=== PATIENT | female | born 1950 | race Caucasian/White ===

== ENCOUNTER 2018-09-09 19:47 | Inpatient (IN) | payer MEDICARE, MEDICAID ==
[2018-09-09] MEDS ORDERED: Haloperidol Lactate 5 mg/mL 1mL Vial IM STA (20:05)
[2018-09-09] MEDS ORDERED: Haloperidol Lactate 5 mg/mL 1mL Vial ONE (20:10)
--- NOTE | 2018-09-09 20:13 | ED Physician Chart ---
ED Chief Complaint/HPI - Patient Information Date Seen:: 09/09/18 Time Seen:: 20:08 Chief Complaint:: agitation schizophrenia History of Present Illness:: 68 yr old female with schizophrenia weakness bipolar anxiety contractures legs hx of sepsis pt agitated screaming take me out of here cussing Allergies:: Allergies Allergy/AdvReac Type Severity Reaction Status Date / Time Penicillins Allergy Verified 09/09/18 20:02 Sulfa (Sulfonamide Allergy Verified 09/09/18 20:02 Antibiotics) Vitals:: Vital Signs - 8 hr 09/09/18 20:03 Temp 97.2 F HR 66 RR 18 BP 151/71 O2 Sat % 100 ED Review of Systems - Review of Systems General/Constitutional: No fever Skin: Skin lesions Eyes: No loss of vision ENT: No earache Neck: No neck pain Cardio Vascular: No chest pain Pulmonary: No SOB G/U: No dysuria Hematopoietic: No bruising Allergic/Immuno: No urticaria Neurological: No syncope ED Past Medical History - Past Medical History Past Medical History: Other (schizo bipolar) ED Physical Exam - Physical Examination Head: Atraumatic Eyes: Lids, conjuctiva normal (cellulitis lower legs and skin lesions arms) ENMT: External ears, nose nl Neck: Nontender Respiratory: Nl effort/Exclusion Cardio Vascular: RRR GI: No organomegaly (pt very agitated screaming very loudly) ED Assessment - Assessment General Assessment: schizophrenia agitation ED Septic Shock - . Is Septic Shock (SBP<90, OR Lactate>4 mmol\L) present?: No - <6hrs of presentation: Vital Signs: Vital Signs - 8 hr 09/09/18 20:03 Temp 97.2 F HR 66 RR 18 BP 151/71 O2 Sat % 100 ED Reassessment (Disposition) - Reassessment Reassessment:: schizo bipolar agitation - Patient Disposition Discharge/Transfer:: Acute Care w/in this hosp Admitted to:: Med/Surg Condition at Disposition:: Unchanged
[2018-09-09 21:03] LABS: % BASOPHILS 0.6 % (0.0-2.0); % EOSINOPHILS 1.9 % (0.0-5.0); % LYMPHOCYTES 35.6 % (20.0-50.0); % MONOCYTES 10.6 % (2.0-10.0); % NEUTROPHILS 51.3 % (40.0-80.0); EOSINOPHILE ABSOLUTE 0.1 Th/cmm (0.1-0.4); HEMATOCRIT 39.5 % (41.0-60); HEMOGLOBIN 13.4 gm/dL (12-16); LYMPHOCYTE ABSOLUTE 2.6 Th/cmm (1.5-3.0); MEAN CELL VOLUME 90.9 fl (81-100); MEAN CORPUSCULAR HEMOGLOBIN 30.8 pg (27.0-31.0); MEAN CORPUSCULAR HGB CONC 33.9 pg (28.0-36.0); MEAN PLATELET VOLUME 6.8 fl; MONOCYTE ABSOLUTE 0.8 Th/cmm (0.3-1.0); NEUTROPHILE ABSOLUTE 3.8 Th/cmm (1.8-8.0); PLATELET COUNT 311 Th/cmm (150-400); RED BLOOD COUNT 4.34 Mil/cmm (3.80-5.20); RED CELL DISTRIBUTION WIDTH 13.6 % (11.5-20.0); WHITE BLOOD COUNT 7.3 Th/cmm (4.8-10.8)
[2018-09-09 21:17] LABS: ALB/GLOB RATIO 1.1 (1.0-1.8); ALBUMIN 2.8 gm/dL (3.7-5.3); ALKALINE PHOSPHATASE 56 U/L (34-104); ANION GAP 12.9 (7.0-16.0); BILIRUBIN,TOTAL 0.7 mg/dL (0.3-1.0); BUN - UREA NITROGEN 15 mg/dL (7-25); CALCIUM SERUM 8.4 mg/dL (8.6-10.3); CARBON DIOXIDE 20.5 mEq/L (21.0-31.0); CHLORIDE 110 mEq/L (98-107); CREATININE - SERUM 0.5 mg/dL (0.6-1.2); GFR AFRICAN-AMERICAN > 60.0 ml/min (>90); GFR NON AFRICAN-AMERICAN > 60.0 ml/min; GLUCOSE 95 mg/dL (70-105); POTASSIUM SERUM 3.4 mEq/L (3.5-5.1); SGOT 9 U/L (13-39); SGPT/ALT 5 U/L (7-52); SODIUM SERUM 140 mEq/L (136-145); TOTAL PROTEIN,SERUM 5.3 gm/dL (6.0-8.3)
[2018-09-10 00:10] VITALS: BP 134/80
[2018-09-10] MEDS ORDERED: Magnesium Hydroxide (MOM) 30 mL UDC PO PRN (00:16)
[2018-09-10] MEDS ORDERED: Maalox 30 mL Cup PO PRN (00:16)
[2018-09-10 04:56] LABS: CHOLESTEROL 137 mg/dL (<200); HDL -HIGH DENSITY LIPOPROTEIN 29 mg/dL (23-92); TRIGLYCERIDES 102 mg/dL (<150)
[2018-09-10] MEDS: Pantoprazole 40 mg EC Tab PO SCH (07:05)
--- NOTE | 2018-09-10 08:24 | Diagnostic Imaging Report ---
CHEST X-RAY: AP view INDICATION: Shortness of breath COMPARISON: None FINDINGS: There is elevation of the left hemidiaphragm. Mild chronic lung changes are noted. There is no focal consolidation or pleural effusions . Mild cardiomegaly is noted with probable atherosclerosis of the aortic arch with tortuous aorta. Degenerative changes of the spine and shoulders are noted. IMPRESSION: Chronic lung changes with no focal consolidation identified. Mild cardiomegaly with probable atherosclerosis of the aortic arch and tortuous aorta.
--- NOTE | 2018-09-10 09:18 | History and Physical ---
History of Present Illness - HPI Chief Complaint: Increased in agitation HPI: Patient is a permanent resident of a SNF, she was send to ER for evaluation due to increased in agitation. During ER eval patient was agitated that she received ativan to calm her. 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: Report: Dementia GI: Report: No Pertinent Hx Psych: Report: Schizophrenia Musculoskeletal: Report: Stiffness, Other (Non ambulatory) Rheumatologic: Report: No pertinent Hx Infectious Disease: Report: No Pertinent Hx Renal/: Report: No Pertinent Hx Endocrine: Report: No Pertinent Hx Dermatology: Report: No Pertinent Hx - Past Surgical History Past Surgical History: No pertinent Hx Family Medical History - Family Member Mother History Unknown: Yes Social History Smoke: No Alcohol: None Drugs: None Lives: [facility] Domestic Violence: Negative - Medications Home Medications: Home Medication Medication Instructions Recorded Type Acetaminophen 650 mg PO Q4HR PRN 09/09/18 History Hydrocodone/Acetaminophen [[place] 1 tab PO Q6HR PRN 09/09/18 History 325 mg-5 mg*] Multivitamin [Daily Value] 1 tab PO DAILY 09/09/18 History Pantoprazole [Protonix] 40 mg PO DAILY 09/09/18 History Valproic Acid [Depakene] 250 mg PO BID 09/09/18 History risperiDONE [RisperDAL] 0.5 mg PO BID 09/09/18 History - Allergies Allergies/Adverse Reactions: Allergies Allergy/AdvReac Type Severity Reaction Status Date / Time Penicillins Allergy Verified 09/09/18 20:02 Sulfa (Sulfonamide Allergy Verified 09/09/18 20:02 Antibiotics) Review of Systems - Review of Systems Review of Systems: Patient can not give a good history. Constitutional: Report: No Significant Eyes: Report: No Significant ENT: Report: No Significant Respiratory: Report: No Significant Cardiovascular: Report: No Significant Gastrointestinal: Report: No Significant Genitourinary: Report: No Significant Musculoskeletal: Report: No Significant Skin: Report: No Significant Neurological: Report: Weakness, Incoordination Physical Exam - Physical Exam HEENT: Report: Ears Nose Throat within normal limits Neck: Report: Within normal limits Cardiovascular Systems: Report: Regular, Rate and Rhythm Respiratory: Report: Breath Sounds are within normal limits Abdomen: Report: Non-tender to palpation Back: Report: Inspection of back is within normal limits. Extremities: Report: Non-tender to palpation., Other (Non ambulatory) Skin: Report: Color of skin is within normal limits, Warm, Dry Neuro/Psych: Report: Disoriented to name time or place - Lab Results All Lab Results last 24 hours: Laboratory Results - last 24 hr 09/09/18 09/09/18 09/09/18 20:57 20:57 20:57 WBC 7.3 RBC 4.34 Hgb 13.4 Hct 39.5 L MCV 90.9 MCH 30.8 MCHC Differential 33.9 RDW 13.6 Plt Count 311 MPV 6.8 Neutrophils % 51.3 Lymphocytes % 35.6 Monocytes % 10.6 H Eosinophils % 1.9 Basophils % 0.6 Sodium 140 Potassium 3.4 L Chloride 110 H Carbon Dioxide 20.5 L Anion Gap 12.9 BUN 15 Creatinine 0.5 L Est GFR ( Amer) > 60.0 Est GFR (Non-Af Amer) > 60.0 BUN/Creatinine Ratio 30.0 Glucose 95 Calcium 8.4 L Total Bilirubin 0.7 AST 9 L ALT 5 L Alkaline Phosphatase 56 Total Protein 5.3 L Albumin 2.8 L Globulin 2.5 Albumin/Globulin Ratio 1.1 Triglycerides 102 Cholesterol 137 LDL Cholesterol Direct 110 HDL Cholesterol 29 - Assessment Assessment: Patient is sleeping but arousable. Dx: increased in agitation, Schizophrenia, General muscle weakness, non ambulatory. - Plan Plan: Patient is follow by Psychiatry, she is continue with SNF meds. Will continue to monitor.
[2018-09-10] MEDS: Multivitamin Tab PO SCH (09:34)
[2018-09-10] MEDS ORDERED: Albuterol Nebulizer 2.5mg/3mL HHN PRN (20:05)
--- NOTE | 2018-09-10 22:55 | Psychiatric Evaluation ---
DATE OF SERVICE: 09/09/2018 IDENTIFYING DATA: The patient is a 68-year-old resident of [facility], post-Acute in [place]. Information obtained directly interviewing the patient as well as reviewing the admission papers and they are reliable. JUSTIFICATION FOR HOSPITALIZATION: The patient is admitted here because of her acute mood swings and paranoia and refusal to comply with the medication. CHIEF COMPLAINT: "I don't need to talk to. I gave all the information, you need to look into." HISTORY OF PRESENT ILLNESS: This is the first psychiatric hospitalization to [facility] for this patient who has been diagnosed with mental illness for a long time and the patient is reported to have been on Risperdal and Depakote and Risperdal and has not been willing to comply with the treatment. The patient has been getting easily agitated and has been having difficult time to cope with the stress and the patient is reported to have been getting easily upset and hence the patient has been referred over here for further care. PAST PSYCHIATRIC HISTORY: Details are not known. MEDICAL HISTORY: Physical examination is requested to be done by Dr. Somers. SUBSTANCE ABUSE HISTORY: None. PHYSICAL OR SEXUAL ABUSE HISTORY: None. LEGAL PROBLEMS: None at this time. MENTAL STATUS EXAMINATION: The patient is a 68-year-old, looking her stated age, superficially cooperative. Eye contact is poor. Mood is noted to be irritable. Affect is constricted. Insight and judgment at this time are noted to be very much impaired. The patient has paranoia and acute mood swings. The patient is not able to contract for safety at this time. The patient is getting easily frustrated and irritable. The patient has no insight into her illness. The patient is alert and oriented to this place, but not to time. The patient is getting easily frustrated. DIAGNOSES AT THE TIME OF ADMISSION: AXIS I: Bipolar disorder mixed with psychotic symptoms, rule out schizoaffective disorder. AXIS II: None. AXIS III: As per Dr. Somers. IMMEDIATE TREATMENT PLAN: The patient is going to be observed on inpatient unit, provided with supportive psychotherapy. The patient is going to be encouraged to participate in the groups and verbalize the concerns. Once stabilized, the patient is going to be discharged to [facility] for further care. JOB# [id number]
[2018-09-11] MEDS: Pantoprazole 40 mg EC Tab PO SCH (06:33)
[2018-09-11] MEDS: Multivitamin Tab PO SCH (08:43)
[2018-09-11] MEDS ORDERED: MULTIVITAMIN PO SCH (09:00)
--- NOTE | 2018-09-11 09:05 | General Progress Note ---
Subjective - Review of Systems Service Date: 09/11/18 Subjective: Patient is confused and incoherent Objective - Results Result Diagrams: 09/09/18 20:57 09/09/18 20:57 Recent Labs: Laboratory Last Values WBC 7.3 Th/cmm (4.8-10.8) 09/09/18 20:57 RBC 4.34 Mil/cmm (3.80-5.20) 09/09/18 20:57 Hgb 13.4 gm/dL (12-16) 09/09/18 20:57 Hct 39.5 % (41.0-60) L 09/09/18 20:57 MCV 90.9 fl (81-100) 09/09/18 20:57 MCH 30.8 pg (27.0-31.0) 09/09/18 20:57 MCHC Differential 33.9 pg (28.0-36.0) 09/09/18 20:57 RDW 13.6 % (11.5-20.0) 09/09/18 20:57 Plt Count 311 Th/cmm (150-400) 09/09/18 20:57 MPV 6.8 fl 09/09/18 20:57 Neutrophils % 51.3 % (40.0-80.0) 09/09/18 20:57 Lymphocytes % 35.6 % (20.0-50.0) 09/09/18 20:57 Monocytes % 10.6 % (2.0-10.0) H 09/09/18 20:57 Eosinophils % 1.9 % (0.0-5.0) 09/09/18 20:57 Basophils % 0.6 % (0.0-2.0) 09/09/18 20:57 Sodium 140 mEq/L (136-145) 09/09/18 20:57 Potassium 3.4 mEq/L (3.5-5.1) L 09/09/18 20:57 Chloride 110 mEq/L (98-107) H 09/09/18 20:57 Carbon Dioxide 20.5 mEq/L (21.0-31.0) L 09/09/18 20:57 Anion Gap 12.9 (7.0-16.0) 09/09/18 20:57 BUN 15 mg/dL (7-25) 09/09/18 20:57 Creatinine 0.5 mg/dL (0.6-1.2) L 09/09/18 20:57 Est GFR ( Amer) > 60.0 ml/min (>90) 09/09/18 20:57 Est GFR (Non-Af Amer) > 60.0 ml/min 09/09/18 20:57 BUN/Creatinine Ratio 30.0 09/09/18 20:57 Glucose 95 mg/dL (70-105) 09/09/18 20:57 Calcium 8.4 mg/dL (8.6-10.3) L 09/09/18 20:57 Total Bilirubin 0.7 mg/dL (0.3-1.0) 09/09/18 20:57 AST 9 U/L (13-39) L 09/09/18 20:57 ALT 5 U/L (7-52) L 09/09/18 20:57 Alkaline Phosphatase 56 U/L (34-104) 09/09/18 20:57 Total Protein 5.3 gm/dL (6.0-8.3) L 09/09/18 20:57 Albumin 2.8 gm/dL (3.7-5.3) L 09/09/18 20:57 Globulin 2.5 gm/dL 09/09/18 20:57 Albumin/Globulin Ratio 1.1 (1.0-1.8) 09/09/18 20:57 Triglycerides 102 mg/dL (<150) 09/09/18 20:57 Cholesterol 137 mg/dL (<200) 09/09/18 20:57 LDL Cholesterol Direct 110 mg/dL (75-193) 09/09/18 20:57 HDL Cholesterol 29 mg/dL (23-92) 09/09/18 20:57 - Physical Exam Vitals and I&O: Vital Signs Temp 98.4 F 09/11/18 06:14 Pulse 110 09/11/18 06:14 Resp 18 09/11/18 06:14 BP 122/47 09/11/18 06:14 Pulse Ox 92 09/11/18 06:14 Intake & Output 09/10/18 09/11/18 09/11/18 18:59 06:59 18:59 Intake Total 850 180 Balance 850 180 Intake: Oral 850 180 Other: # Voids 4 1 # Bowel Movements 1 1 Active Medications: Current Medications Acetaminophen (Tylenol) 650 mg PO Q4HR PRN PRN Reason: Mild Pain 1-3/ Temp above 100 Stop: 11/09/18 01:41 Acetaminophen/Hydrocodone Bitart ([place] 5mg/325mg) 1 tab PO Q6HR PRN PRN Reason: MODERATE TO SEVERE PAIN Stop: 11/09/18 06:32 Al Hydrox/Mg Hydrox/Simethicone (Maalox) 30 ml PO Q4HR PRN PRN Reason: GI DISTRESS Stop: 11/09/18 00:15 Albuterol Sulfate (Albuterol 2.5mg/3ml Neb Ud) 2.5 mg HHN Q6H PRN PRN Reason: Shortness of Breath Stop: 11/09/18 20:04 Lorazepam (Ativan) 0.5 mg PO Q4HR PRN; Protocol PRN Reason: Anxiety Stop: 10/10/18 00:15 Magnesium Hydroxide (Milk Of Magnesia) 30 ml PO HS PRN PRN Reason: Constipation Multivitamins/Vitamin C (Theragran) 1 tab PO DAILY KIRK Stop: 11/09/18 08:59 Last Admin: 09/11/18 08:43 Dose: 1 tab Pantoprazole Sodium (Protonix) 40 mg PO QDAC KIRK Stop: 11/09/18 07:29 Last Admin: 09/11/18 06:33 Dose: 40 mg Zolpidem Tartrate (Ambien) 5 mg PO HS PRN PRN Reason: Insomnia Stop: 11/09/18 00:15 General: Alert, Other (Confused) HEENT: Atraumatic Neck: Supple Cardiovascular: Regular rate Lungs: Clear to auscultation Abdomen: Bowel sounds, Soft Extremities: Other (No edema) Neurological: Other (Non ambulatory) Skin: Other (Warm and dry) Psych/Mental Status: Other (Confused, not oriented) Assessment/Plan - Assessment Assessment: Patient is awake, confused, not oriented, she ate 70%. Dx: increased in agitation, Schizophrenia, General muscle weakness, non ambulatory. - Plan Plan: Patient is follow by Psychiatry, she is continue with SNF meds. Will continue to monitor.
[2018-09-11] MEDS: Venelex 60gm Tube TP SCH (15:27)
--- NOTE | 2018-09-11 17:14 | Consultation ---
DATE OF CONSULTATION: 09/11/2018 REFERRING PHYSICIAN: Kip Carlson M.D. TYPE OF CONSULTATION: Psychology. HISTORY OF PRESENT ILLNESS: The patient is a 68-year-old female. The patient is a [facility] in [place], [place]. The following is by record review and by the patient's self report. The patient is being admitted due to acute mood swings and paranoia as well as refusal to comply with medication. Upon interview, the patient states that she does not need to give any information. The patient is reported by the staff at her facility as becoming easily agitated and difficult to redirect with poor coping skills. The patient was transferred here for stabilization. The patient denied any suicidal ideation, plan, or intention at the time of this clinical interview. PAST MEDICAL HISTORY: Please see history and physical by Dr. Somers. PAST PSYCHIATRIC HISTORY: Records are unavailable. Details are unknown. SUBSTANCE ABUSE HISTORY: The patient denied any history of substance abuse including alcohol, tobacco, or illicit drug use. PSYCHOSOCIAL HISTORY: The patient did not answer questions about occupational or educational history or jew affiliation. She did not answer questions about history of physical or sexual abuse or current legal problems. The patient offered no information about any support system including marital status, children, family, or friends that are part of her care. MENTAL STATUS EXAMINATION: The patient appears to be her stated age. The patient's attitude is superficially cooperative and guarded. Eye contact is poor. Speech is spontaneous. Mood is irritable. Affect is constricted. The patient is experiencing acute mood swings during this clinical interview. The patient denied any auditory or visual hallucinations. The patient denies any suicidal ideation, plan, or intention. The patient has been difficult to redirect on the unit according to staff. Impulse control is poor. Concentration is poor. Sensorium is alert and oriented to self and place. The patient did not participate in the memory assessment. The patient did not participate in the interpretation of proverbs. Insight is poor. Judgment is impaired. DIAGNOSTIC IMPRESSION: AXIS I: Bipolar disorder mixed with psychotic symptoms, rule out schizoaffective disorder. AXIS II: Deferred. AXIS III: Per Dr. Somers. TREATMENT PLAN: The patient has been seen by Dr. Carlson for psychiatric evaluation and for the management of the patient's psychotropic medications. We will provide supportive psychotherapy to include reality orientation, differentiation, and integration. We will provide de-escalation as well as limit setting. We will provide coping strategies for phase of life issues as well as for chronic severe mental illness. We will provide motivational enhancement for the patient to become compliant and stay compliant with all aspects of her care and treatment. We will encourage the patient to be able to demonstrate emotional and self-regulation prior to her discharge. According to the record, the patient had been on Risperdal and Depakote and had been unwilling to comply with that treatment. Please see the Psychiatry treatment plan for current medication. Thank you, Dr. Carlson for this consult and the opportunity to participate in this patient's care. JOB# [id number] PETAR
--- NOTE | 2018-09-11 19:36 | Progress Notes ---
DATE: 09/11/2018 SUBJECTIVE: Staff was spoken to. The patient is interviewed. Mood is noted to be depressed. Affect is constricted. The patient is isolative and withdrawn. The patient has been very sedated and even without the medication and has been having difficult time even to swallow. The patient is being closely monitored at this time with only on a p.r.n. doses of medications and the patient's coping skills at this time are noted to be very poor. ASSESSMENT: The patient is still depressed. PLAN: To continue the patient with the supportive therapy. I encouraged the patient to verbalize the concerns rather than to act out. The patient's medication is going to be reviewed again and followed up with the supportive therapy. JOB# [id number]
[2018-09-12] MEDS: Pantoprazole 40 mg EC Tab PO SCH (06:36)
[2018-09-12] MEDS: Multivitamin Tab PO SCH (08:21)
[2018-09-12] MEDS: Venelex 60gm Tube TP SCH (08:21)
--- NOTE | 2018-09-12 15:39 | Progress Notes ---
DATE: 09/12/2018 CHIEF COMPLAINT: Psychotic illness. SUBJECTIVE: The patient was seen, discussed with staff. He remains forgetful, confused, and irritable. The patient, however, is taking her medications. Appetite and sleep are fair. The patient at times is still having some episodes of refusing care. The patient is still having some agitation. MENTAL STATUS EXAM: Speech is minimal, ____ to topic. Affect is dysphoric. The patient is still paranoid. Memory, calculation, and fund of knowledge are impaired. ASSESSMENT: Bipolar disorder mixed with psychosis versus schizoaffective disorder. PLAN: Continue medication management. Continue stabilization. Continue supportive measures. The patient was on risperidone and Depakote. We will try to start a small dose of Seroquel to see if that helps more. JOB# [id number]
--- NOTE | 2018-09-12 17:05 | General Progress Note ---
Subjective - Review of Systems Service Date: 09/12/18 Subjective: Patient is confused and incoherent Objective - Results Result Diagrams: 09/09/18 20:57 09/09/18 20:57 Recent Labs: Laboratory Last Values WBC 7.3 Th/cmm (4.8-10.8) 09/09/18 20:57 RBC 4.34 Mil/cmm (3.80-5.20) 09/09/18 20:57 Hgb 13.4 gm/dL (12-16) 09/09/18 20:57 Hct 39.5 % (41.0-60) L 09/09/18 20:57 MCV 90.9 fl (81-100) 09/09/18 20:57 MCH 30.8 pg (27.0-31.0) 09/09/18 20:57 MCHC Differential 33.9 pg (28.0-36.0) 09/09/18 20:57 RDW 13.6 % (11.5-20.0) 09/09/18 20:57 Plt Count 311 Th/cmm (150-400) 09/09/18 20:57 MPV 6.8 fl 09/09/18 20:57 Neutrophils % 51.3 % (40.0-80.0) 09/09/18 20:57 Lymphocytes % 35.6 % (20.0-50.0) 09/09/18 20:57 Monocytes % 10.6 % (2.0-10.0) H 09/09/18 20:57 Eosinophils % 1.9 % (0.0-5.0) 09/09/18 20:57 Basophils % 0.6 % (0.0-2.0) 09/09/18 20:57 Sodium 140 mEq/L (136-145) 09/09/18 20:57 Potassium 3.4 mEq/L (3.5-5.1) L 09/09/18 20:57 Chloride 110 mEq/L (98-107) H 09/09/18 20:57 Carbon Dioxide 20.5 mEq/L (21.0-31.0) L 09/09/18 20:57 Anion Gap 12.9 (7.0-16.0) 09/09/18 20:57 BUN 15 mg/dL (7-25) 09/09/18 20:57 Creatinine 0.5 mg/dL (0.6-1.2) L 09/09/18 20:57 Est GFR ( Amer) > 60.0 ml/min (>90) 09/09/18 20:57 Est GFR (Non-Af Amer) > 60.0 ml/min 09/09/18 20:57 BUN/Creatinine Ratio 30.0 09/09/18 20:57 Glucose 95 mg/dL (70-105) 09/09/18 20:57 Calcium 8.4 mg/dL (8.6-10.3) L 09/09/18 20:57 Total Bilirubin 0.7 mg/dL (0.3-1.0) 09/09/18 20:57 AST 9 U/L (13-39) L 09/09/18 20:57 ALT 5 U/L (7-52) L 09/09/18 20:57 Alkaline Phosphatase 56 U/L (34-104) 09/09/18 20:57 Total Protein 5.3 gm/dL (6.0-8.3) L 09/09/18 20:57 Albumin 2.8 gm/dL (3.7-5.3) L 09/09/18 20:57 Globulin 2.5 gm/dL 09/09/18 20:57 Albumin/Globulin Ratio 1.1 (1.0-1.8) 09/09/18 20:57 Triglycerides 102 mg/dL (<150) 09/09/18 20:57 Cholesterol 137 mg/dL (<200) 09/09/18 20:57 LDL Cholesterol Direct 110 mg/dL (75-193) 09/09/18 20:57 HDL Cholesterol 29 mg/dL (23-92) 09/09/18 20:57 - Physical Exam Vitals and I&O: Vital Signs Temp 99.0 F 09/12/18 14:00 Pulse 82 09/12/18 14:00 Resp 18 09/12/18 14:00 BP 119/62 09/12/18 14:00 Pulse Ox 96 09/12/18 14:00 Intake & Output 09/11/18 09/12/18 09/12/18 18:59 06:59 18:59 Intake Total 960 Balance 960 Intake: Oral 960 Other: # Voids 3 # Bowel Movements 1 Active Medications: Current Medications Acetaminophen (Tylenol) 650 mg PO Q4HR PRN PRN Reason: Mild Pain 1-3/ Temp above 100 Stop: 11/09/18 01:41 Acetaminophen/Hydrocodone Bitart ([place] 5mg/325mg) 1 tab PO Q6HR PRN PRN Reason: MODERATE TO SEVERE PAIN Stop: 11/09/18 06:32 Al Hydrox/Mg Hydrox/Simethicone (Maalox) 30 ml PO Q4HR PRN PRN Reason: GI DISTRESS Stop: 11/09/18 00:15 Albuterol Sulfate (Albuterol 2.5mg/3ml Neb Ud) 2.5 mg HHN Q6H PRN PRN Reason: Shortness of Breath Stop: 11/09/18 20:04 [place] Oil/[place] Balsam/Trypsin (Venelex) 1 appl TP DAILY KIRK Stop: 11/10/18 14:14 Last Admin: 09/12/18 08:21 Dose: 1 appl Lorazepam (Ativan) 0.5 mg PO Q4HR PRN; Protocol PRN Reason: Anxiety Stop: 10/10/18 00:15 Last Admin: 09/12/18 08:21 Dose: 0.5 mg Magnesium Hydroxide (Milk Of Magnesia) 30 ml PO HS PRN PRN Reason: Constipation Multivitamins/Vitamin C (Theragran) 1 tab PO DAILY KIRK Stop: 11/09/18 08:59 Last Admin: 09/12/18 08:21 Dose: 1 tab Pantoprazole Sodium (Protonix) 40 mg PO QDAC KIRK Stop: 11/09/18 07:29 Last Admin: 09/12/18 06:36 Dose: 40 mg Quetiapine Fumarate (Seroquel) 12.5 mg PO HS KIRK; Protocol Stop: 11/11/18 20:59 Zolpidem Tartrate (Ambien) 5 mg PO HS PRN PRN Reason: Insomnia Stop: 11/09/18 00:15 General: Alert, Other (Confused) HEENT: Atraumatic Neck: Supple Cardiovascular: Regular rate Lungs: Clear to auscultation Abdomen: Bowel sounds, Soft Extremities: Other (No edema) Neurological: Other (Non ambulatory) Skin: Other (Warm and dry) Psych/Mental Status: Other (Confused, not oriented) Assessment/Plan - Assessment Assessment: Patient is awake, confused, not oriented, she ate 70%. Dx: increased in agitation, Schizophrenia, General muscle weakness, non ambulatory. - Plan Plan: Patient is follow by Psychiatry, she is continue with SNF meds. Will continue to monitor. Nutritional Asmnt/Malnutr-PDOC - Dietary Evaluation Malnutrition Findings (Please click <Entered> for more info): Nutritional Asmnt/Malnutrition Start: 09/12/18 08: 57 Text: Status: Complete Freq: Protocol: Document 09/12/18 08:57 GWENDOLYN (Rec: 09/12/18 09:01 [email or web address] [email or web address]) Nutritional Asmnt/Malnutrition Patient General Information Nutritional Screening High Risk Consult Diagnosis psychosis Pertinent Medical Hx/Surgical Hx schizo, bipolar Subjective Information Consult received for right media 1st metatarsal head pressure ulcer. Pt seen sleeping in bed at time of visit. Spoke with nurse Edna, stated pt eats well with assist. Per EMR, PO intake 50- 75% of meals, meeting 100% of nutritional needs. Pt is getting healthy shake on pureed diet. Current Diet Order/ Nutrition Support pureed Pertinent Medications theragran, protonix Pertinent Labs 09/09 K 3.4, Cl 110, Cr 0.5, glucose 95, Ca 8.4, Alb 2.8 Nutritional Hx/Data Height 1.68 m Height (Calculated Centimeters) 167.6 Current Weight (lbs) 52.163 kg Weight (Calculated Kilograms) 52.2 Weight (Calculated Grams) 14664.1 [place] Body Weight 130 Body Mass Index (BMI) 18.6 Weight Status Approriate GI Symptoms GI Symptoms None Last BM 09/11 Difficult in: None Skin Integrity/Comment: Right medial first metatarsal head Pressure ulcer Current %PO Fair (50-74%) Estimated Nutritional Goals BEE in Kcals: Using Current wt Calories/Kcals/Kg 27-32 Kcals Calculated 6607-7844 Protein: Using Current wt Protein g/k-1.2 Protein Calculated 52-62 Fluid: ml 1404-1664ml (1ml/kcal) Nutritional Problem 1. Problem Problem increased protein needs Etiology impared skin integrity Signs/Symptoms: Right medial first metatarsal head Pressure ulcer No current Nutrition Prob Problem N/A Malnutrition Alert Is there a minimum of two criteria No selected? Query Text:Check all the applicable criteria. A minimum of two criteria are recommended for diagnosis of either severe or non-severe malnutrition. Malnutrition Related to Morbid Obesity Malnutrition related to morbid obesity No Intervention/Recommendation Comments 1. Continue with pureed diet as ordered. Nurse to assist pt with all meals. Add Randy BID for wound healing. 2. Monitor PO intake, wt, labs and skin integrity 3. F/U as low risk in 7 days, 09/19, PO check 09/16 Expected Outcomes/Goals Expected Outcomes/Goals 1. PO intake to meet at least 75% of nutritional needs. 2. Wt stability, skin to remain intact, labs to approach WNL.
[2018-09-13] MEDS: Pantoprazole 40 mg EC Tab PO SCH (06:32)
[2018-09-13] MEDS: Multivitamin Tab PO SCH (09:51)
[2018-09-13] MEDS: Venelex 60gm Tube TP SCH (09:52)
--- NOTE | 2018-09-13 17:43 | Progress Notes ---
DATE: 09/13/2018 SUBJECTIVE: The patient was seen, remains anxious, delusional, paranoid, still having episodes of yelling, screaming. The patient's insight is poor, judgment is impaired. The patient is taking her medications. Appetite and sleep are fair. ASSESSMENT: The patient still in psychotic phase, still highly agitated. PLAN: Continue stabilization. Continue medication management. The patient was started on Seroquel 12.5 mg at bedtime. Consider increasing dose gradually. JOB# [id number]
[2018-09-14] MEDS: Pantoprazole 40 mg EC Tab PO SCH (06:34)
[2018-09-14] MEDS: Venelex 60gm Tube TP SCH (09:28)
[2018-09-14] MEDS: Multivitamin Tab PO SCH (09:28)
--- NOTE | 2018-09-14 09:50 | General Progress Note ---
Subjective - Review of Systems Service Date: 09/14/18 Subjective: Patient is confused and incoherent Objective - Results Result Diagrams: 09/09/18 20:57 09/09/18 20:57 Recent Labs: Laboratory Last Values WBC 7.3 Th/cmm (4.8-10.8) 09/09/18 20:57 RBC 4.34 Mil/cmm (3.80-5.20) 09/09/18 20:57 Hgb 13.4 gm/dL (12-16) 09/09/18 20:57 Hct 39.5 % (41.0-60) L 09/09/18 20:57 MCV 90.9 fl (81-100) 09/09/18 20:57 MCH 30.8 pg (27.0-31.0) 09/09/18 20:57 MCHC Differential 33.9 pg (28.0-36.0) 09/09/18 20:57 RDW 13.6 % (11.5-20.0) 09/09/18 20:57 Plt Count 311 Th/cmm (150-400) 09/09/18 20:57 MPV 6.8 fl 09/09/18 20:57 Neutrophils % 51.3 % (40.0-80.0) 09/09/18 20:57 Lymphocytes % 35.6 % (20.0-50.0) 09/09/18 20:57 Monocytes % 10.6 % (2.0-10.0) H 09/09/18 20:57 Eosinophils % 1.9 % (0.0-5.0) 09/09/18 20:57 Basophils % 0.6 % (0.0-2.0) 09/09/18 20:57 Sodium 140 mEq/L (136-145) 09/09/18 20:57 Potassium 3.4 mEq/L (3.5-5.1) L 09/09/18 20:57 Chloride 110 mEq/L (98-107) H 09/09/18 20:57 Carbon Dioxide 20.5 mEq/L (21.0-31.0) L 09/09/18 20:57 Anion Gap 12.9 (7.0-16.0) 09/09/18 20:57 BUN 15 mg/dL (7-25) 09/09/18 20:57 Creatinine 0.5 mg/dL (0.6-1.2) L 09/09/18 20:57 Est GFR ( Amer) > 60.0 ml/min (>90) 09/09/18 20:57 Est GFR (Non-Af Amer) > 60.0 ml/min 09/09/18 20:57 BUN/Creatinine Ratio 30.0 09/09/18 20:57 Glucose 95 mg/dL (70-105) 09/09/18 20:57 Calcium 8.4 mg/dL (8.6-10.3) L 09/09/18 20:57 Total Bilirubin 0.7 mg/dL (0.3-1.0) 09/09/18 20:57 AST 9 U/L (13-39) L 09/09/18 20:57 ALT 5 U/L (7-52) L 09/09/18 20:57 Alkaline Phosphatase 56 U/L (34-104) 09/09/18 20:57 Total Protein 5.3 gm/dL (6.0-8.3) L 09/09/18 20:57 Albumin 2.8 gm/dL (3.7-5.3) L 09/09/18 20:57 Globulin 2.5 gm/dL 09/09/18 20:57 Albumin/Globulin Ratio 1.1 (1.0-1.8) 09/09/18 20:57 Triglycerides 102 mg/dL (<150) 09/09/18 20:57 Cholesterol 137 mg/dL (<200) 09/09/18 20:57 LDL Cholesterol Direct 110 mg/dL (75-193) 09/09/18 20:57 HDL Cholesterol 29 mg/dL (23-92) 09/09/18 20:57 - Physical Exam Vitals and I&O: Vital Signs Temp 97.8 F 09/14/18 06:22 Pulse 84 09/14/18 07:52 Resp 18 09/14/18 07:52 BP 138/66 09/14/18 06:22 Pulse Ox 96 09/14/18 07:52 Intake & Output 09/13/18 09/14/18 09/14/18 18:59 06:59 18:59 Intake Total 1200 120 Balance 1200 120 Intake: Oral 1200 120 Other: # Voids 4 3 # Bowel Movements 2 0 Active Medications: Current Medications Acetaminophen (Tylenol) 650 mg PO Q4HR PRN PRN Reason: Mild Pain 1-3/ Temp above 100 Stop: 11/09/18 01:41 Last Admin: 09/13/18 12:56 Dose: 650 mg Acetaminophen/Hydrocodone Bitart ([place] 5mg/325mg) 1 tab PO Q6HR PRN PRN Reason: MODERATE TO SEVERE PAIN Stop: 11/09/18 06:32 Al Hydrox/Mg Hydrox/Simethicone (Maalox) 30 ml PO Q4HR PRN PRN Reason: GI DISTRESS Stop: 11/09/18 00:15 Albuterol Sulfate (Albuterol 2.5mg/3ml Neb Ud) 2.5 mg HHN Q6H PRN PRN Reason: Shortness of Breath Stop: 11/09/18 20:04 [place] Oil/[place] Balsam/Trypsin (Venelex) 1 appl TP DAILY KIRK Stop: 11/10/18 14:14 Last Admin: 09/14/18 09:28 Dose: 1 appl Lorazepam (Ativan) 0.5 mg PO Q4HR PRN; Protocol PRN Reason: Anxiety Stop: 10/10/18 00:15 Last Admin: 09/14/18 09:28 Dose: 0.5 mg Magnesium Hydroxide (Milk Of Magnesia) 30 ml PO HS PRN PRN Reason: Constipation Multivitamins/Vitamin C (Theragran) 1 tab PO DAILY KIRK Stop: 11/09/18 08:59 Last Admin: 09/14/18 09:28 Dose: 1 tab Pantoprazole Sodium (Protonix) 40 mg PO QDAC KIRK Stop: 11/09/18 07:29 Last Admin: 09/14/18 06:34 Dose: 40 mg Quetiapine Fumarate (Seroquel) 12.5 mg PO HS KIRK; Protocol Stop: 11/11/18 20:59 Last Admin: 09/13/18 21:09 Dose: 12.5 mg Zolpidem Tartrate (Ambien) 5 mg PO HS PRN PRN Reason: Insomnia Stop: 11/09/18 00:15 Last Admin: 09/13/18 21:09 Dose: 5 mg General: Alert, Other (Confused) HEENT: Atraumatic Neck: Supple Cardiovascular: Regular rate Lungs: Clear to auscultation Abdomen: Bowel sounds, Soft Extremities: Other (No edema) Neurological: Other (Non ambulatory) Skin: Other (Warm and dry) Psych/Mental Status: Other (Confused, not oriented) Assessment/Plan - Assessment Assessment: Patient is awake, confused, not oriented, she ate 70%. Dx: increased in agitation, Schizophrenia, General muscle weakness, non ambulatory. - Plan Plan: Patient is follow by Psychiatry, she is continue with SNF meds. Will continue to monitor. Nutritional Asmnt/Malnutr-PDOC - Dietary Evaluation Malnutrition Findings (Please click <Entered> for more info): Nutritional Asmnt/Malnutrition Start: 09/12/18 08: 57 Text: Status: Complete Freq: Protocol: Document 09/12/18 08:57 IDAG (Rec: 09/12/18 09:01 [email or web address] [email or web address]) Nutritional Asmnt/Malnutrition Patient General Information Nutritional Screening High Risk Consult Diagnosis psychosis Pertinent Medical Hx/Surgical Hx schizo, bipolar Subjective Information Consult received for right media 1st metatarsal head pressure ulcer. Pt seen sleeping in bed at time of visit. Spoke with nurse Edna, stated pt eats well with assist. Per EMR, PO intake 50- 75% of meals, meeting 100% of nutritional needs. Pt is getting healthy shake on pureed diet. Current Diet Order/ Nutrition Support pureed Pertinent Medications theragran, protonix Pertinent Labs 09/09 K 3.4, Cl 110, Cr 0.5, glucose 95, Ca 8.4, Alb 2.8 Nutritional Hx/Data Height 1.68 m Height (Calculated Centimeters) 167.6 Current Weight (lbs) 52.163 kg Weight (Calculated Kilograms) 52.2 Weight (Calculated Grams) 23958.1 [place] Body Weight 130 Body Mass Index (BMI) 18.6 Weight Status Approriate GI Symptoms GI Symptoms None Last BM 09/11 Difficult in: None Skin Integrity/Comment: Right medial first metatarsal head Pressure ulcer Current %PO Fair (50-74%) Estimated Nutritional Goals BEE in Kcals: Using Current wt Calories/Kcals/Kg 27-32 Kcals Calculated 4343-0672 Protein: Using Current wt Protein g/k-1.2 Protein Calculated 52-62 Fluid: ml 1404-1664ml (1ml/kcal) Nutritional Problem 1. Problem Problem increased protein needs Etiology impared skin integrity Signs/Symptoms: Right medial first metatarsal head Pressure ulcer No current Nutrition Prob Problem N/A Malnutrition Alert Is there a minimum of two criteria No selected? Query Text:Check all the applicable criteria. A minimum of two criteria are recommended for diagnosis of either severe or non-severe malnutrition. Malnutrition Related to Morbid Obesity Malnutrition related to morbid obesity No Intervention/Recommendation Comments 1. Continue with pureed diet as ordered. Nurse to assist pt with all meals. Add Randy BID for wound healing. 2. Monitor PO intake, wt, labs and skin integrity 3. F/U as low risk in 7 days, 09/19, PO check 09/16 Expected Outcomes/Goals Expected Outcomes/Goals 1. PO intake to meet at least 75% of nutritional needs. 2. Wt stability, skin to remain intact, labs to approach WNL.
--- NOTE | 2018-09-14 18:45 | Progress Notes ---
DATE: 09/14/2018 SUBJECTIVE: The patient was seen, remains anxious, irritable, some episodes of yelling, remains forgetful and confused. The patient, however, is taking her medications at times. Sleep are fair. MENTAL STATUS: The patient is oriented to person, not oriented to time or place. Thought process is disorganized. The patient is talking to herself, have some episodes of yelling. ASSESSMENT: The patient is still confused and agitated. PLAN: Continue stabilization and medication management. The patient's Seroquel currently at 25 mg p.o. at bedtime. Allow more time for clinical efficacy. JOB# [id number]
[2018-09-15] MEDS: Pantoprazole 40 mg EC Tab PO SCH (06:56)
--- NOTE | 2018-09-15 10:04 | General Progress Note ---
Subjective - Review of Systems Service Date: 09/15/18 Subjective: Patient is confused and incoherent Objective - Results Result Diagrams: 09/09/18 20:57 09/09/18 20:57 Recent Labs: Laboratory Last Values WBC 7.3 Th/cmm (4.8-10.8) 09/09/18 20:57 RBC 4.34 Mil/cmm (3.80-5.20) 09/09/18 20:57 Hgb 13.4 gm/dL (12-16) 09/09/18 20:57 Hct 39.5 % (41.0-60) L 09/09/18 20:57 MCV 90.9 fl (81-100) 09/09/18 20:57 MCH 30.8 pg (27.0-31.0) 09/09/18 20:57 MCHC Differential 33.9 pg (28.0-36.0) 09/09/18 20:57 RDW 13.6 % (11.5-20.0) 09/09/18 20:57 Plt Count 311 Th/cmm (150-400) 09/09/18 20:57 MPV 6.8 fl 09/09/18 20:57 Neutrophils % 51.3 % (40.0-80.0) 09/09/18 20:57 Lymphocytes % 35.6 % (20.0-50.0) 09/09/18 20:57 Monocytes % 10.6 % (2.0-10.0) H 09/09/18 20:57 Eosinophils % 1.9 % (0.0-5.0) 09/09/18 20:57 Basophils % 0.6 % (0.0-2.0) 09/09/18 20:57 Sodium 140 mEq/L (136-145) 09/09/18 20:57 Potassium 3.4 mEq/L (3.5-5.1) L 09/09/18 20:57 Chloride 110 mEq/L (98-107) H 09/09/18 20:57 Carbon Dioxide 20.5 mEq/L (21.0-31.0) L 09/09/18 20:57 Anion Gap 12.9 (7.0-16.0) 09/09/18 20:57 BUN 15 mg/dL (7-25) 09/09/18 20:57 Creatinine 0.5 mg/dL (0.6-1.2) L 09/09/18 20:57 Est GFR ( Amer) > 60.0 ml/min (>90) 09/09/18 20:57 Est GFR (Non-Af Amer) > 60.0 ml/min 09/09/18 20:57 BUN/Creatinine Ratio 30.0 09/09/18 20:57 Glucose 95 mg/dL (70-105) 09/09/18 20:57 Calcium 8.4 mg/dL (8.6-10.3) L 09/09/18 20:57 Total Bilirubin 0.7 mg/dL (0.3-1.0) 09/09/18 20:57 AST 9 U/L (13-39) L 09/09/18 20:57 ALT 5 U/L (7-52) L 09/09/18 20:57 Alkaline Phosphatase 56 U/L (34-104) 09/09/18 20:57 Total Protein 5.3 gm/dL (6.0-8.3) L 09/09/18 20:57 Albumin 2.8 gm/dL (3.7-5.3) L 09/09/18 20:57 Globulin 2.5 gm/dL 09/09/18 20:57 Albumin/Globulin Ratio 1.1 (1.0-1.8) 09/09/18 20:57 Triglycerides 102 mg/dL (<150) 09/09/18 20:57 Cholesterol 137 mg/dL (<200) 09/09/18 20:57 LDL Cholesterol Direct 110 mg/dL (75-193) 09/09/18 20:57 HDL Cholesterol 29 mg/dL (23-92) 09/09/18 20:57 - Physical Exam Vitals and I&O: Vital Signs Temp 97.8 F 09/15/18 06:57 Pulse 67 09/15/18 08:32 Resp 12 09/15/18 08:32 BP 141/105 09/15/18 06:57 Pulse Ox 100 09/15/18 08:32 Intake & Output 09/14/18 09/15/18 09/15/18 18:59 06:59 18:59 Intake Total 120 Output Total 1 Balance 119 Intake: Oral 120 Output: Urine/Stool Mix 1 Other: # Voids 4 1 # Bowel Movements 2 Active Medications: Current Medications Acetaminophen (Tylenol) 650 mg PO Q4HR PRN PRN Reason: Mild Pain 1-3/ Temp above 100 Stop: 11/09/18 01:41 Last Admin: 09/13/18 12:56 Dose: 650 mg Acetaminophen/Hydrocodone Bitart ([place] 5mg/325mg) 1 tab PO Q6HR PRN PRN Reason: MODERATE TO SEVERE PAIN Stop: 11/09/18 06:32 Al Hydrox/Mg Hydrox/Simethicone (Maalox) 30 ml PO Q4HR PRN PRN Reason: GI DISTRESS Stop: 11/09/18 00:15 Albuterol Sulfate (Albuterol 2.5mg/3ml Neb Ud) 2.5 mg HHN Q6H PRN PRN Reason: Shortness of Breath Stop: 11/09/18 20:04 [place] Oil/[place] Balsam/Trypsin (Venelex) 1 appl TP DAILY KIRK Stop: 11/10/18 14:14 Last Admin: 09/14/18 09:28 Dose: 1 appl Lorazepam (Ativan) 0.5 mg PO Q4HR PRN; Protocol PRN Reason: Anxiety Stop: 10/10/18 00:15 Last Admin: 09/15/18 06:56 Dose: 0.5 mg Magnesium Hydroxide (Milk Of Magnesia) 30 ml PO HS PRN PRN Reason: Constipation Multivitamins/Vitamin C (Theragran) 1 tab PO DAILY KIRK Stop: 11/09/18 08:59 Last Admin: 09/14/18 09:28 Dose: 1 tab Pantoprazole Sodium (Protonix) 40 mg PO QDAC KIRK Stop: 11/09/18 07:29 Last Admin: 09/15/18 06:56 Dose: 40 mg Quetiapine Fumarate (Seroquel) 12.5 mg PO HS KIRK; Protocol Stop: 11/11/18 20:59 Last Admin: 09/14/18 20:35 Dose: 12.5 mg Zolpidem Tartrate (Ambien) 5 mg PO HS PRN PRN Reason: Insomnia Stop: 11/09/18 00:15 Last Admin: 09/14/18 20:35 Dose: 5 mg General: Alert, Other (Confused) HEENT: Atraumatic Neck: Supple Cardiovascular: Regular rate Lungs: Clear to auscultation Abdomen: Bowel sounds, Soft Extremities: Other (No edema) Neurological: Other (Non ambulatory) Skin: Other (Warm and dry) Psych/Mental Status: Other (Confused, not oriented) Assessment/Plan - Assessment Assessment: Patient is awake, confused, not oriented, she ate 70%. Dx: increased in agitation, Schizophrenia, General muscle weakness, non ambulatory. - Plan Plan: Patient is follow by Psychiatry, she is continue with SNF meds. Will continue to monitor. Nutritional Asmnt/Malnutr-PDOC - Dietary Evaluation Malnutrition Findings (Please click <Entered> for more info): Nutritional Asmnt/Malnutrition Start: 09/12/18 08: 57 Text: Status: Complete Freq: Protocol: Document 09/12/18 08:57 FABIANA (Rec: 09/12/18 09:01 FABIANA [email or web address]) Nutritional Asmnt/Malnutrition Patient General Information Nutritional Screening High Risk Consult Diagnosis psychosis Pertinent Medical Hx/Surgical Hx schizo, bipolar Subjective Information Consult received for right media 1st metatarsal head pressure ulcer. Pt seen sleeping in bed at time of visit. Spoke with nurse Edna, stated pt eats well with assist. Per EMR, PO intake 50- 75% of meals, meeting 100% of nutritional needs. Pt is getting healthy shake on pureed diet. Current Diet Order/ Nutrition Support pureed Pertinent Medications theragran, protonix Pertinent Labs 09/09 K 3.4, Cl 110, Cr 0.5, glucose 95, Ca 8.4, Alb 2.8 Nutritional Hx/Data Height 1.68 m Height (Calculated Centimeters) 167.6 Current Weight (lbs) 52.163 kg Weight (Calculated Kilograms) 52.2 Weight (Calculated Grams) 71657.1 [place] Body Weight 130 Body Mass Index (BMI) 18.6 Weight Status Approriate GI Symptoms GI Symptoms None Last BM 09/11 Difficult in: None Skin Integrity/Comment: Right medial first metatarsal head Pressure ulcer Current %PO Fair (50-74%) Estimated Nutritional Goals BEE in Kcals: Using Current wt Calories/Kcals/Kg 27-32 Kcals Calculated 7148-0640 Protein: Using Current wt Protein g/k-1.2 Protein Calculated 52-62 Fluid: ml 1404-1664ml (1ml/kcal) Nutritional Problem 1. Problem Problem increased protein needs Etiology impared skin integrity Signs/Symptoms: Right medial first metatarsal head Pressure ulcer No current Nutrition Prob Problem N/A Malnutrition Alert Is there a minimum of two criteria No selected? Query Text:Check all the applicable criteria. A minimum of two criteria are recommended for diagnosis of either severe or non-severe malnutrition. Malnutrition Related to Morbid Obesity Malnutrition related to morbid obesity No Intervention/Recommendation Comments 1. Continue with pureed diet as ordered. Nurse to assist pt with all meals. Add Randy BID for wound healing. 2. Monitor PO intake, wt, labs and skin integrity 3. F/U as low risk in 7 days, 09/19, PO check 09/16 Expected Outcomes/Goals Expected Outcomes/Goals 1. PO intake to meet at least 75% of nutritional needs. 2. Wt stability, skin to remain intact, labs to approach WNL.
[2018-09-15] MEDS: Multivitamin Tab PO SCH (10:09)
[2018-09-15] MEDS: Venelex 60gm Tube TP SCH (10:09)
[2018-09-15] MEDS: Hydrocodone/APAP 5mg/325mg Tab PO PRN (14:45)
--- NOTE | 2018-09-16 04:07 | Progress Notes ---
DATE: 09/15/2018 PSYCHIATRIC PROGRESS NOTE SUBJECTIVE: Staff was spoken to. The patient is interviewed. Mood is noted to be depressed. Affect is constricted. The patient's coping skills are noted to poor at this time. Insight and judgment are noted to be limited. The patient is isolative and withdrawn. The patient's coping skills are noted to be extremely poor. The patient is currently on Seroquel 12.5 mg and has been able to tolerate the medication. ASSESSMENT: The patient is still paranoid and depressed. PLAN: To continue the patient with the supportive therapy and followup. JOB# [id number]
[2018-09-16] MEDS: Pantoprazole 40 mg EC Tab PO SCH (06:35)
--- NOTE | 2018-09-16 08:43 | General Progress Note ---
Subjective - Review of Systems Service Date: 09/16/18 Subjective: Patient is confused and incoherent Objective - Results Result Diagrams: 09/09/18 20:57 09/09/18 20:57 Recent Labs: Laboratory Last Values WBC 7.3 Th/cmm (4.8-10.8) 09/09/18 20:57 RBC 4.34 Mil/cmm (3.80-5.20) 09/09/18 20:57 Hgb 13.4 gm/dL (12-16) 09/09/18 20:57 Hct 39.5 % (41.0-60) L 09/09/18 20:57 MCV 90.9 fl (81-100) 09/09/18 20:57 MCH 30.8 pg (27.0-31.0) 09/09/18 20:57 MCHC Differential 33.9 pg (28.0-36.0) 09/09/18 20:57 RDW 13.6 % (11.5-20.0) 09/09/18 20:57 Plt Count 311 Th/cmm (150-400) 09/09/18 20:57 MPV 6.8 fl 09/09/18 20:57 Neutrophils % 51.3 % (40.0-80.0) 09/09/18 20:57 Lymphocytes % 35.6 % (20.0-50.0) 09/09/18 20:57 Monocytes % 10.6 % (2.0-10.0) H 09/09/18 20:57 Eosinophils % 1.9 % (0.0-5.0) 09/09/18 20:57 Basophils % 0.6 % (0.0-2.0) 09/09/18 20:57 Sodium 140 mEq/L (136-145) 09/09/18 20:57 Potassium 3.4 mEq/L (3.5-5.1) L 09/09/18 20:57 Chloride 110 mEq/L (98-107) H 09/09/18 20:57 Carbon Dioxide 20.5 mEq/L (21.0-31.0) L 09/09/18 20:57 Anion Gap 12.9 (7.0-16.0) 09/09/18 20:57 BUN 15 mg/dL (7-25) 09/09/18 20:57 Creatinine 0.5 mg/dL (0.6-1.2) L 09/09/18 20:57 Est GFR ( Amer) > 60.0 ml/min (>90) 09/09/18 20:57 Est GFR (Non-Af Amer) > 60.0 ml/min 09/09/18 20:57 BUN/Creatinine Ratio 30.0 09/09/18 20:57 Glucose 95 mg/dL (70-105) 09/09/18 20:57 Calcium 8.4 mg/dL (8.6-10.3) L 09/09/18 20:57 Total Bilirubin 0.7 mg/dL (0.3-1.0) 09/09/18 20:57 AST 9 U/L (13-39) L 09/09/18 20:57 ALT 5 U/L (7-52) L 09/09/18 20:57 Alkaline Phosphatase 56 U/L (34-104) 09/09/18 20:57 Total Protein 5.3 gm/dL (6.0-8.3) L 09/09/18 20:57 Albumin 2.8 gm/dL (3.7-5.3) L 09/09/18 20:57 Globulin 2.5 gm/dL 09/09/18 20:57 Albumin/Globulin Ratio 1.1 (1.0-1.8) 09/09/18 20:57 Triglycerides 102 mg/dL (<150) 09/09/18 20:57 Cholesterol 137 mg/dL (<200) 09/09/18 20:57 LDL Cholesterol Direct 110 mg/dL (75-193) 09/09/18 20:57 HDL Cholesterol 29 mg/dL (23-92) 09/09/18 20:57 - Physical Exam Vitals and I&O: Vital Signs Temp 97.5 F 09/16/18 06:27 Pulse 76 09/16/18 08:08 Resp 18 09/16/18 08:08 BP 151/54 09/16/18 06:27 Pulse Ox 100 09/16/18 08:08 Intake & Output 09/15/18 09/16/18 09/16/18 18:59 06:59 18:59 Intake Total 1250 240 Balance 1250 240 Intake: Oral 1250 240 Other: # Voids 4 2 # Bowel Movements 2 Active Medications: Current Medications Acetaminophen (Tylenol) 650 mg PO Q4HR PRN PRN Reason: Mild Pain 1-3/ Temp above 100 Stop: 11/09/18 01:41 Last Admin: 09/15/18 12:01 Dose: 650 mg Acetaminophen/Hydrocodone Bitart ([place] 5mg/325mg) 1 tab PO Q6HR PRN PRN Reason: MODERATE TO SEVERE PAIN Stop: 11/09/18 06:32 Last Admin: 09/15/18 14:45 Dose: 1 tab Al Hydrox/Mg Hydrox/Simethicone (Maalox) 30 ml PO Q4HR PRN PRN Reason: GI DISTRESS Stop: 11/09/18 00:15 Albuterol Sulfate (Albuterol 2.5mg/3ml Neb Ud) 2.5 mg HHN Q6H PRN PRN Reason: Shortness of Breath Stop: 11/09/18 20:04 [place] Oil/[place] Balsam/Trypsin (Venelex) 1 appl TP DAILY KIRK Stop: 11/10/18 14:14 Last Admin: 09/15/18 10:09 Dose: Not Given Lorazepam (Ativan) 0.5 mg PO Q4HR PRN; Protocol PRN Reason: Anxiety Stop: 10/10/18 00:15 Last Admin: 09/15/18 14:45 Dose: 0.5 mg Magnesium Hydroxide (Milk Of Magnesia) 30 ml PO HS PRN PRN Reason: Constipation Multivitamins/Vitamin C (Theragran) 1 tab PO DAILY KIRK Stop: 11/09/18 08:59 Last Admin: 09/15/18 10:09 Dose: Not Given Pantoprazole Sodium (Protonix) 40 mg PO QDAC KIRK Stop: 11/09/18 07:29 Last Admin: 09/16/18 06:35 Dose: 40 mg Quetiapine Fumarate (Seroquel) 25 mg PO HS KIRK; Protocol Stop: 11/14/18 20:59 Last Admin: 09/15/18 21:08 Dose: 25 mg Zolpidem Tartrate (Ambien) 5 mg PO HS PRN PRN Reason: Insomnia Stop: 11/09/18 00:15 Last Admin: 09/14/18 20:35 Dose: 5 mg General: Alert, Other (Confused) HEENT: Atraumatic Neck: Supple Cardiovascular: Regular rate Lungs: Clear to auscultation Abdomen: Bowel sounds, Soft Extremities: Other (No edema) Neurological: Other (Non ambulatory) Skin: Other (There is some redness of lower extremities) Psych/Mental Status: Other (Confused, not oriented) Assessment/Plan - Assessment Assessment: Patient is awake, confused, not oriented, she ate 70%. Dx: increased in agitation, Schizophrenia, Cellulites, General muscle weakness, non ambulatory. - Plan Plan: Patient is follow by Psychiatry, she is continue with SNF meds. Will continue to monitor. Nutritional Asmnt/Malnutr-PDOC - Dietary Evaluation Malnutrition Findings (Please click <Entered> for more info): Nutritional Asmnt/Malnutrition Start: 09/12/18 08: 57 Text: Status: Complete Freq: Protocol: Document 09/12/18 08:57 IDAG (Rec: 09/12/18 09:01 [email or web address]) Nutritional Asmnt/Malnutrition Patient General Information Nutritional Screening High Risk Consult Diagnosis psychosis Pertinent Medical Hx/Surgical Hx schizo, bipolar Subjective Information Consult received for right media 1st metatarsal head pressure ulcer. Pt seen sleeping in bed at time of visit. Spoke with nurse Edna, stated pt eats well with assist. Per EMR, PO intake 50- 75% of meals, meeting 100% of nutritional needs. Pt is getting healthy shake on pureed diet. Current Diet Order/ Nutrition Support pureed Pertinent Medications theragran, protonix Pertinent Labs 09/09 K 3.4, Cl 110, Cr 0.5, glucose 95, Ca 8.4, Alb 2.8 Nutritional Hx/Data Height 1.68 m Height (Calculated Centimeters) 167.6 Current Weight (lbs) 52.163 kg Weight (Calculated Kilograms) 52.2 Weight (Calculated Grams) 51841.1 [place] Body Weight 130 Body Mass Index (BMI) 18.6 Weight Status Approriate GI Symptoms GI Symptoms None Last BM 09/11 Difficult in: None Skin Integrity/Comment: Right medial first metatarsal head Pressure ulcer Current %PO Fair (50-74%) Estimated Nutritional Goals BEE in Kcals: Using Current wt Calories/Kcals/Kg 27-32 Kcals Calculated 9526-7906 Protein: Using Current wt Protein g/k-1.2 Protein Calculated 52-62 Fluid: ml 1404-1664ml (1ml/kcal) Nutritional Problem 1. Problem Problem increased protein needs Etiology impared skin integrity Signs/Symptoms: Right medial first metatarsal head Pressure ulcer No current Nutrition Prob Problem N/A Malnutrition Alert Is there a minimum of two criteria No selected? Query Text:Check all the applicable criteria. A minimum of two criteria are recommended for diagnosis of either severe or non-severe malnutrition. Malnutrition Related to Morbid Obesity Malnutrition related to morbid obesity No Intervention/Recommendation Comments 1. Continue with pureed diet as ordered. Nurse to assist pt with all meals. Add Randy BID for wound healing. 2. Monitor PO intake, wt, labs and skin integrity 3. F/U as low risk in 7 days, 09/19, PO check 09/16 Expected Outcomes/Goals Expected Outcomes/Goals 1. PO intake to meet at least 75% of nutritional needs. 2. Wt stability, skin to remain intact, labs to approach WNL.
[2018-09-16] MEDS: Multivitamin Tab PO SCH (08:58)
[2018-09-16] MEDS: Venelex 60gm Tube TP SCH (09:07)
--- NOTE | 2018-09-17 02:46 | Progress Notes ---
DATE: 09/16/2018 PSYCHIATRIC PROGRESS NOTE Staff was spoken to. The patient is interviewed. Mood is noted to be irritable. Affect is constricted. The patient is screaming at the top of her lungs. The patient has been given 0.5 mg of the Ativan, but she is still not calming down. The patient is very paranoid and is stating that the people are taking things away from her and doing things behind her back. The patient is extremely paranoid and hence it is decided to increase the dose of the Seroquel to 25 mg twice a day and I encouraged the patient to verbalize the concerns rather than to act out. JOB# [id number]
[2018-09-17] MEDS: Pantoprazole 40 mg EC Tab PO SCH (06:41)
[2018-09-17] MEDS: Multivitamin Tab PO SCH (08:53)
[2018-09-17] MEDS: Hydrocodone/APAP 5mg/325mg Tab PO PRN ×2 (08:54→15:25)
--- NOTE | 2018-09-17 09:10 | General Progress Note ---
Subjective - Review of Systems Service Date: 09/17/18 Subjective: Patient is confused and incoherent Objective - Results Result Diagrams: 09/09/18 20:57 09/09/18 20:57 Recent Labs: Laboratory Last Values WBC 7.3 Th/cmm (4.8-10.8) 09/09/18 20:57 RBC 4.34 Mil/cmm (3.80-5.20) 09/09/18 20:57 Hgb 13.4 gm/dL (12-16) 09/09/18 20:57 Hct 39.5 % (41.0-60) L 09/09/18 20:57 MCV 90.9 fl (81-100) 09/09/18 20:57 MCH 30.8 pg (27.0-31.0) 09/09/18 20:57 MCHC Differential 33.9 pg (28.0-36.0) 09/09/18 20:57 RDW 13.6 % (11.5-20.0) 09/09/18 20:57 Plt Count 311 Th/cmm (150-400) 09/09/18 20:57 MPV 6.8 fl 09/09/18 20:57 Neutrophils % 51.3 % (40.0-80.0) 09/09/18 20:57 Lymphocytes % 35.6 % (20.0-50.0) 09/09/18 20:57 Monocytes % 10.6 % (2.0-10.0) H 09/09/18 20:57 Eosinophils % 1.9 % (0.0-5.0) 09/09/18 20:57 Basophils % 0.6 % (0.0-2.0) 09/09/18 20:57 Sodium 140 mEq/L (136-145) 09/09/18 20:57 Potassium 3.4 mEq/L (3.5-5.1) L 09/09/18 20:57 Chloride 110 mEq/L (98-107) H 09/09/18 20:57 Carbon Dioxide 20.5 mEq/L (21.0-31.0) L 09/09/18 20:57 Anion Gap 12.9 (7.0-16.0) 09/09/18 20:57 BUN 15 mg/dL (7-25) 09/09/18 20:57 Creatinine 0.5 mg/dL (0.6-1.2) L 09/09/18 20:57 Est GFR ( Amer) > 60.0 ml/min (>90) 09/09/18 20:57 Est GFR (Non-Af Amer) > 60.0 ml/min 09/09/18 20:57 BUN/Creatinine Ratio 30.0 09/09/18 20:57 Glucose 95 mg/dL (70-105) 09/09/18 20:57 Calcium 8.4 mg/dL (8.6-10.3) L 09/09/18 20:57 Total Bilirubin 0.7 mg/dL (0.3-1.0) 09/09/18 20:57 AST 9 U/L (13-39) L 09/09/18 20:57 ALT 5 U/L (7-52) L 09/09/18 20:57 Alkaline Phosphatase 56 U/L (34-104) 09/09/18 20:57 Total Protein 5.3 gm/dL (6.0-8.3) L 09/09/18 20:57 Albumin 2.8 gm/dL (3.7-5.3) L 09/09/18 20:57 Globulin 2.5 gm/dL 09/09/18 20:57 Albumin/Globulin Ratio 1.1 (1.0-1.8) 09/09/18 20:57 Triglycerides 102 mg/dL (<150) 09/09/18 20:57 Cholesterol 137 mg/dL (<200) 09/09/18 20:57 LDL Cholesterol Direct 110 mg/dL (75-193) 09/09/18 20:57 HDL Cholesterol 29 mg/dL (23-92) 09/09/18 20:57 - Physical Exam Vitals and I&O: Vital Signs Temp 98.7 F 09/17/18 06:27 Pulse 102 09/17/18 07:30 Resp 20 09/17/18 07:30 BP 110/59 09/17/18 06:27 Pulse Ox 97 09/17/18 07:30 Intake & Output 09/16/18 09/17/18 09/17/18 18:59 06:59 18:59 Intake Total 950 120 Balance 950 120 Intake: Oral 950 120 Other: # Voids 4 3 # Bowel Movements 1 0 Active Medications: Current Medications Acetaminophen (Tylenol) 650 mg PO Q4HR PRN PRN Reason: Mild Pain 1-3/ Temp above 100 Stop: 11/09/18 01:41 Last Admin: 09/15/18 12:01 Dose: 650 mg Acetaminophen/Hydrocodone Bitart ([place] 5mg/325mg) 1 tab PO Q6HR PRN PRN Reason: MODERATE TO SEVERE PAIN Stop: 11/09/18 06:32 Last Admin: 09/17/18 08:54 Dose: 1 tab Al Hydrox/Mg Hydrox/Simethicone (Maalox) 30 ml PO Q4HR PRN PRN Reason: GI DISTRESS Stop: 11/09/18 00:15 Albuterol Sulfate (Albuterol 2.5mg/3ml Neb Ud) 2.5 mg HHN Q6H PRN PRN Reason: Shortness of Breath Stop: 11/09/18 20:04 [place] Oil/[place] Balsam/Trypsin (Venelex) 1 appl TP DAILY KIRK Stop: 11/10/18 14:14 Last Admin: 09/16/18 09:07 Dose: Not Given Clindamycin HCl (Cleocin Hcl) 600 mg PO BID KIRK Stop: 11/16/18 16:59 Lorazepam (Ativan) 0.5 mg PO Q4HR PRN; Protocol PRN Reason: Anxiety Stop: 10/10/18 00:15 Last Admin: 09/17/18 08:57 Dose: 0.5 mg Magnesium Hydroxide (Milk Of Magnesia) 30 ml PO HS PRN PRN Reason: Constipation Multivitamins/Vitamin C (Theragran) 1 tab PO DAILY KIRK Stop: 11/09/18 08:59 Last Admin: 09/17/18 08:53 Dose: 1 tab Pantoprazole Sodium (Protonix) 40 mg PO QDAC KIRK Stop: 11/09/18 07:29 Last Admin: 09/17/18 06:41 Dose: 40 mg Quetiapine Fumarate (Seroquel) 25 mg PO BID KIRK; Protocol Stop: 11/16/18 08:59 Last Admin: 09/17/18 08:54 Dose: 25 mg Zolpidem Tartrate (Ambien) 5 mg PO HS PRN PRN Reason: Insomnia Stop: 11/09/18 00:15 Last Admin: 09/14/18 20:35 Dose: 5 mg General: Alert, Other (Confused) HEENT: Atraumatic Neck: Supple Cardiovascular: Regular rate Lungs: Clear to auscultation Abdomen: Bowel sounds, Soft Extremities: Other (No edema) Neurological: Other (Non ambulatory) Skin: Other (There is some redness of lower extremities) Psych/Mental Status: Other (Confused, not oriented) Assessment/Plan - Assessment Assessment: Patient is awake, confused, not oriented, she ate 70%. Dx: increased in agitation, Schizophrenia, Cellulites, General muscle weakness, non ambulatory. - Plan Plan: Patient is follow by Psychiatry, she is continue with SNF meds. Clindamycin is introduced. Will continue to monitor. Nutritional Asmnt/Malnutr-PDOC - Dietary Evaluation Malnutrition Findings (Please click <Entered> for more info): Nutritional Asmnt/Malnutrition Start: 09/12/18 08: 57 Text: Status: Complete Freq: Protocol: Document 09/12/18 08:57 FABIANA (Rec: 09/12/18 09:01 [email or web address]) Nutritional Asmnt/Malnutrition Patient General Information Nutritional Screening High Risk Consult Diagnosis psychosis Pertinent Medical Hx/Surgical Hx schizo, bipolar Subjective Information Consult received for right media 1st metatarsal head pressure ulcer. Pt seen sleeping in bed at time of visit. Spoke with nurse Edna, stated pt eats well with assist. Per EMR, PO intake 50- 75% of meals, meeting 100% of nutritional needs. Pt is getting healthy shake on pureed diet. Current Diet Order/ Nutrition Support pureed Pertinent Medications theragran, protonix Pertinent Labs 09/09 K 3.4, Cl 110, Cr 0.5, glucose 95, Ca 8.4, Alb 2.8 Nutritional Hx/Data Height 1.68 m Height (Calculated Centimeters) 167.6 Current Weight (lbs) 52.163 kg Weight (Calculated Kilograms) 52.2 Weight (Calculated Grams) 87551.1 [place] Body Weight 130 Body Mass Index (BMI) 18.6 Weight Status Approriate GI Symptoms GI Symptoms None Last BM 09/11 Difficult in: None Skin Integrity/Comment: Right medial first metatarsal head Pressure ulcer Current %PO Fair (50-74%) Estimated Nutritional Goals BEE in Kcals: Using Current wt Calories/Kcals/Kg 27-32 Kcals Calculated 1502-0462 Protein: Using Current wt Protein g/k-1.2 Protein Calculated 52-62 Fluid: ml 1404-1664ml (1ml/kcal) Nutritional Problem 1. Problem Problem increased protein needs Etiology impared skin integrity Signs/Symptoms: Right medial first metatarsal head Pressure ulcer No current Nutrition Prob Problem N/A Malnutrition Alert Is there a minimum of two criteria No selected? Query Text:Check all the applicable criteria. A minimum of two criteria are recommended for diagnosis of either severe or non-severe malnutrition. Malnutrition Related to Morbid Obesity Malnutrition related to morbid obesity No Intervention/Recommendation Comments 1. Continue with pureed diet as ordered. Nurse to assist pt with all meals. Add Randy BID for wound healing. 2. Monitor PO intake, wt, labs and skin integrity 3. F/U as low risk in 7 days, 09/19, PO check 09/16 Expected Outcomes/Goals Expected Outcomes/Goals 1. PO intake to meet at least 75% of nutritional needs. 2. Wt stability, skin to remain intact, labs to approach WNL.
[2018-09-17] MEDS: Venelex 60gm Tube TP SCH (10:05)
--- NOTE | 2018-09-18 05:17 | Progress Notes ---
DATE: 09/17/2018 SUBJECTIVE: Staff was spoken to. The patient is interviewed. Mood is noted to be irritable. Affect is constricted. Insight and judgment at this time are noted to be still impaired. Impulse control is noted to be limited. Coping skills are noted to be limited. The patient has been having difficult time to cope with the stress. The patient is screaming and yelling at the top of her lungs. The patient has been placed on Seroquel, has been too drowsy, and hence, the patient is going to be placed on 1 mg twice a day of haloperidol and the patient is going to be continued on Depakene. I encouraged her to verbalize the concerns rather than to act out. ASSESSMENT: The patient is still grossly psychotic. PLAN: Continue the patient with supportive therapy and follow up. JOB# [id number]
[2018-09-18] MEDS: Pantoprazole 40 mg EC Tab PO SCH (06:51)
[2018-09-18] MEDS: Multivitamin Tab PO SCH (09:12)
[2018-09-18] MEDS: Venelex 60gm Tube TP SCH (10:00)
--- NOTE | 2018-09-18 17:26 | General Progress Note ---
Subjective - Review of Systems Service Date: 09/18/18 Subjective: Patient is confused and incoherent Objective - Results Result Diagrams: 09/09/18 20:57 09/09/18 20:57 Recent Labs: Laboratory Last Values WBC 7.3 Th/cmm (4.8-10.8) 09/09/18 20:57 RBC 4.34 Mil/cmm (3.80-5.20) 09/09/18 20:57 Hgb 13.4 gm/dL (12-16) 09/09/18 20:57 Hct 39.5 % (41.0-60) L 09/09/18 20:57 MCV 90.9 fl (81-100) 09/09/18 20:57 MCH 30.8 pg (27.0-31.0) 09/09/18 20:57 MCHC Differential 33.9 pg (28.0-36.0) 09/09/18 20:57 RDW 13.6 % (11.5-20.0) 09/09/18 20:57 Plt Count 311 Th/cmm (150-400) 09/09/18 20:57 MPV 6.8 fl 09/09/18 20:57 Neutrophils % 51.3 % (40.0-80.0) 09/09/18 20:57 Lymphocytes % 35.6 % (20.0-50.0) 09/09/18 20:57 Monocytes % 10.6 % (2.0-10.0) H 09/09/18 20:57 Eosinophils % 1.9 % (0.0-5.0) 09/09/18 20:57 Basophils % 0.6 % (0.0-2.0) 09/09/18 20:57 Sodium 140 mEq/L (136-145) 09/09/18 20:57 Potassium 3.4 mEq/L (3.5-5.1) L 09/09/18 20:57 Chloride 110 mEq/L (98-107) H 09/09/18 20:57 Carbon Dioxide 20.5 mEq/L (21.0-31.0) L 09/09/18 20:57 Anion Gap 12.9 (7.0-16.0) 09/09/18 20:57 BUN 15 mg/dL (7-25) 09/09/18 20:57 Creatinine 0.5 mg/dL (0.6-1.2) L 09/09/18 20:57 Est GFR ( Amer) > 60.0 ml/min (>90) 09/09/18 20:57 Est GFR (Non-Af Amer) > 60.0 ml/min 09/09/18 20:57 BUN/Creatinine Ratio 30.0 09/09/18 20:57 Glucose 95 mg/dL (70-105) 09/09/18 20:57 Calcium 8.4 mg/dL (8.6-10.3) L 09/09/18 20:57 Total Bilirubin 0.7 mg/dL (0.3-1.0) 09/09/18 20:57 AST 9 U/L (13-39) L 09/09/18 20:57 ALT 5 U/L (7-52) L 09/09/18 20:57 Alkaline Phosphatase 56 U/L (34-104) 09/09/18 20:57 Total Protein 5.3 gm/dL (6.0-8.3) L 09/09/18 20:57 Albumin 2.8 gm/dL (3.7-5.3) L 09/09/18 20:57 Globulin 2.5 gm/dL 09/09/18 20:57 Albumin/Globulin Ratio 1.1 (1.0-1.8) 09/09/18 20:57 Triglycerides 102 mg/dL (<150) 09/09/18 20:57 Cholesterol 137 mg/dL (<200) 09/09/18 20:57 LDL Cholesterol Direct 110 mg/dL (75-193) 09/09/18 20:57 HDL Cholesterol 29 mg/dL (23-92) 09/09/18 20:57 - Physical Exam Vitals and I&O: Vital Signs Temp 97.4 F 09/18/18 14:00 Pulse 75 09/18/18 14:00 Resp 20 09/18/18 14:00 BP 101/56 09/18/18 14:00 Pulse Ox 96 09/18/18 14:00 Intake & Output 09/17/18 09/18/18 09/18/18 18:59 06:59 18:59 Intake Total 180 Balance 180 Intake: Oral 180 Other: # Voids 1 # Bowel Movements 1 Active Medications: Current Medications Acetaminophen (Tylenol) 650 mg PO Q4HR PRN PRN Reason: Mild Pain 1-3/ Temp above 100 Stop: 11/09/18 01:41 Last Admin: 09/15/18 12:01 Dose: 650 mg Al Hydrox/Mg Hydrox/Simethicone (Maalox) 30 ml PO Q4HR PRN PRN Reason: GI DISTRESS Stop: 11/09/18 00:15 Albuterol Sulfate (Albuterol 2.5mg/3ml Neb Ud) 2.5 mg HHN Q6H PRN PRN Reason: Shortness of Breath Stop: 11/09/18 20:04 [place] Oil/[place] Balsam/Trypsin (Venelex) 1 appl TP DAILY KIRK Stop: 11/10/18 14:14 Last Admin: 09/18/18 10:00 Dose: 1 appl Clindamycin HCl (Cleocin Hcl) 600 mg PO BID KIRK Stop: 11/16/18 16:59 Last Admin: 09/18/18 16:44 Dose: 600 mg Lorazepam (Ativan) 0.5 mg PO Q4HR PRN; Protocol PRN Reason: Anxiety Stop: 10/10/18 00:15 Last Admin: 09/18/18 16:44 Dose: 0.5 mg Magnesium Hydroxide (Milk Of Magnesia) 30 ml PO HS PRN PRN Reason: Constipation Multivitamins/Vitamin C (Theragran) 1 tab PO DAILY KIRK Stop: 11/09/18 08:59 Last Admin: 09/18/18 09:12 Dose: 1 tab Oxcarbazepine (Trileptal) 150 mg PO BID KIRK; Protocol Stop: 11/17/18 08:59 Last Admin: 09/18/18 16:45 Dose: 150 mg Pantoprazole Sodium (Protonix) 40 mg PO QDAC KIRK Stop: 11/09/18 07:29 Last Admin: 09/18/18 06:51 Dose: 40 mg Quetiapine Fumarate (Seroquel) 50 mg PO BID KIRK; Protocol Stop: 11/17/18 08:59 Last Admin: 09/18/18 16:44 Dose: 50 mg Zolpidem Tartrate (Ambien) 5 mg PO HS PRN PRN Reason: Insomnia Stop: 11/09/18 00:15 Last Admin: 09/14/18 20:35 Dose: 5 mg General: Alert, Other (Confused) HEENT: Atraumatic Neck: Supple Cardiovascular: Regular rate Lungs: Clear to auscultation Abdomen: Bowel sounds, Soft Extremities: Other (No edema) Neurological: Other (Non ambulatory) Skin: Other (There is some redness of lower extremities) Psych/Mental Status: Other (Confused, not oriented) Assessment/Plan - Assessment Assessment: Patient is awake, confused, not oriented, she ate 70%. Dx: increased in agitation, Schizophrenia, Cellulites, General muscle weakness, non ambulatory. - Plan Plan: Patient is follow by Psychiatry, she is continue with SNF meds. Will continue to monitor. Nutritional Asmnt/Malnutr-PDOC - Dietary Evaluation Malnutrition Findings (Please click <Entered> for more info): Nutritional Asmnt/Malnutrition Start: 09/12/18 08: 57 Text: Status: Complete Freq: Protocol: Document 09/12/18 08:57 FABIANA (Rec: 09/12/18 09:01 [email or web address]) Nutritional Asmnt/Malnutrition Patient General Information Nutritional Screening High Risk Consult Diagnosis psychosis Pertinent Medical Hx/Surgical Hx schizo, bipolar Subjective Information Consult received for right media 1st metatarsal head pressure ulcer. Pt seen sleeping in bed at time of visit. Spoke with nurse Edna, stated pt eats well with assist. Per EMR, PO intake 50- 75% of meals, meeting 100% of nutritional needs. Pt is getting healthy shake on pureed diet. Current Diet Order/ Nutrition Support pureed Pertinent Medications theragran, protonix Pertinent Labs 09/09 K 3.4, Cl 110, Cr 0.5, glucose 95, Ca 8.4, Alb 2.8 Nutritional Hx/Data Height 1.68 m Height (Calculated Centimeters) 167.6 Current Weight (lbs) 52.163 kg Weight (Calculated Kilograms) 52.2 Weight (Calculated Grams) 14152.1 [place] Body Weight 130 Body Mass Index (BMI) 18.6 Weight Status Approriate GI Symptoms GI Symptoms None Last BM 09/11 Difficult in: None Skin Integrity/Comment: Right medial first metatarsal head Pressure ulcer Current %PO Fair (50-74%) Estimated Nutritional Goals BEE in Kcals: Using Current wt Calories/Kcals/Kg 27-32 Kcals Calculated 3500-8821 Protein: Using Current wt Protein g/k-1.2 Protein Calculated 52-62 Fluid: ml 1404-1664ml (1ml/kcal) Nutritional Problem 1. Problem Problem increased protein needs Etiology impared skin integrity Signs/Symptoms: Right medial first metatarsal head Pressure ulcer No current Nutrition Prob Problem N/A Malnutrition Alert Is there a minimum of two criteria No selected? Query Text:Check all the applicable criteria. A minimum of two criteria are recommended for diagnosis of either severe or non-severe malnutrition. Malnutrition Related to Morbid Obesity Malnutrition related to morbid obesity No Intervention/Recommendation Comments 1. Continue with pureed diet as ordered. Nurse to assist pt with all meals. Add Randy BID for wound healing. 2. Monitor PO intake, wt, labs and skin integrity 3. F/U as low risk in 7 days, 09/19, PO check 09/16 Expected Outcomes/Goals Expected Outcomes/Goals 1. PO intake to meet at least 75% of nutritional needs. 2. Wt stability, skin to remain intact, labs to approach WNL.
--- NOTE | 2018-09-19 02:34 | Progress Notes ---
DATE: 09/18/2018 SUBJECTIVE: Staff was spoken to. The patient is interviewed. Mood is noted to be less irritable today. Insight and judgment are noted to be still impaired. The patient is demented. The patient has been having difficult time to cope with the stress. The patient is currently on the oxcarbazepine 150 mg twice a day and the Seroquel is being given at 50 mg twice a day. The patient is at this time, able to comply with the medication. ASSESSMENT: The patient is still psychotic. PLAN: To continue the patient with the supportive therapy, encourage the patient to verbalize the concerns rather than to act out. JOB# [id number]
[2018-09-19] MEDS: Pantoprazole 40 mg EC Tab PO SCH (07:06)
[2018-09-19] MEDS: Multivitamin Tab PO SCH (08:17)
--- NOTE | 2018-09-19 09:00 | General Progress Note ---
Subjective - Review of Systems Service Date: 09/19/18 Subjective: Patient is confused and incoherent Objective - Results Result Diagrams: 09/09/18 20:57 09/09/18 20:57 Recent Labs: Laboratory Last Values WBC 7.3 Th/cmm (4.8-10.8) 09/09/18 20:57 RBC 4.34 Mil/cmm (3.80-5.20) 09/09/18 20:57 Hgb 13.4 gm/dL (12-16) 09/09/18 20:57 Hct 39.5 % (41.0-60) L 09/09/18 20:57 MCV 90.9 fl (81-100) 09/09/18 20:57 MCH 30.8 pg (27.0-31.0) 09/09/18 20:57 MCHC Differential 33.9 pg (28.0-36.0) 09/09/18 20:57 RDW 13.6 % (11.5-20.0) 09/09/18 20:57 Plt Count 311 Th/cmm (150-400) 09/09/18 20:57 MPV 6.8 fl 09/09/18 20:57 Neutrophils % 51.3 % (40.0-80.0) 09/09/18 20:57 Lymphocytes % 35.6 % (20.0-50.0) 09/09/18 20:57 Monocytes % 10.6 % (2.0-10.0) H 09/09/18 20:57 Eosinophils % 1.9 % (0.0-5.0) 09/09/18 20:57 Basophils % 0.6 % (0.0-2.0) 09/09/18 20:57 Sodium 140 mEq/L (136-145) 09/09/18 20:57 Potassium 3.4 mEq/L (3.5-5.1) L 09/09/18 20:57 Chloride 110 mEq/L (98-107) H 09/09/18 20:57 Carbon Dioxide 20.5 mEq/L (21.0-31.0) L 09/09/18 20:57 Anion Gap 12.9 (7.0-16.0) 09/09/18 20:57 BUN 15 mg/dL (7-25) 09/09/18 20:57 Creatinine 0.5 mg/dL (0.6-1.2) L 09/09/18 20:57 Est GFR ( Amer) > 60.0 ml/min (>90) 09/09/18 20:57 Est GFR (Non-Af Amer) > 60.0 ml/min 09/09/18 20:57 BUN/Creatinine Ratio 30.0 09/09/18 20:57 Glucose 95 mg/dL (70-105) 09/09/18 20:57 Calcium 8.4 mg/dL (8.6-10.3) L 09/09/18 20:57 Total Bilirubin 0.7 mg/dL (0.3-1.0) 09/09/18 20:57 AST 9 U/L (13-39) L 09/09/18 20:57 ALT 5 U/L (7-52) L 09/09/18 20:57 Alkaline Phosphatase 56 U/L (34-104) 09/09/18 20:57 Total Protein 5.3 gm/dL (6.0-8.3) L 09/09/18 20:57 Albumin 2.8 gm/dL (3.7-5.3) L 09/09/18 20:57 Globulin 2.5 gm/dL 09/09/18 20:57 Albumin/Globulin Ratio 1.1 (1.0-1.8) 09/09/18 20:57 Triglycerides 102 mg/dL (<150) 09/09/18 20:57 Cholesterol 137 mg/dL (<200) 09/09/18 20:57 LDL Cholesterol Direct 110 mg/dL (75-193) 09/09/18 20:57 HDL Cholesterol 29 mg/dL (23-92) 09/09/18 20:57 - Physical Exam Vitals and I&O: Vital Signs Temp 97 F 09/19/18 06:44 Pulse 76 09/19/18 06:44 Resp 18 09/19/18 06:44 BP 122/64 09/19/18 06:44 Pulse Ox 96 09/19/18 06:44 Intake & Output 09/18/18 09/19/18 09/19/18 18:59 06:59 18:59 Intake Total 700 120 Balance 700 120 Intake: Oral 700 120 Other: # Voids 3 3 # Bowel Movements 1 Active Medications: Current Medications Acetaminophen (Tylenol) 650 mg PO Q4HR PRN PRN Reason: Mild Pain 1-3/ Temp above 100 Stop: 11/09/18 01:41 Last Admin: 09/15/18 12:01 Dose: 650 mg Al Hydrox/Mg Hydrox/Simethicone (Maalox) 30 ml PO Q4HR PRN PRN Reason: GI DISTRESS Stop: 11/09/18 00:15 Albuterol Sulfate (Albuterol 2.5mg/3ml Neb Ud) 2.5 mg HHN Q6H PRN PRN Reason: Shortness of Breath Stop: 11/09/18 20:04 [place] Oil/[place] Balsam/Trypsin (Venelex) 1 appl TP DAILY [facility] Stop: 11/10/18 14:14 Last Admin: 09/18/18 10:00 Dose: 1 appl Clindamycin HCl (Cleocin Hcl) 600 mg PO BID [facility] Stop: 11/16/18 16:59 Last Admin: 09/19/18 08:17 Dose: 600 mg Lorazepam (Ativan) 0.5 mg PO Q4HR PRN; Protocol PRN Reason: Anxiety Stop: 10/10/18 00:15 Last Admin: 09/18/18 16:44 Dose: 0.5 mg Magnesium Hydroxide (Milk Of Magnesia) 30 ml PO HS PRN PRN Reason: Constipation Multivitamins/Vitamin C (Theragran) 1 tab PO DAILY [facility] Stop: 11/09/18 08:59 Last Admin: 09/19/18 08:17 Dose: 1 tab Oxcarbazepine (Trileptal) 150 mg PO BID [facility]; Protocol Stop: 11/17/18 08:59 Last Admin: 09/19/18 08:17 Dose: 150 mg Pantoprazole Sodium (Protonix) 40 mg PO QDAC [facility] Stop: 11/09/18 07:29 Last Admin: 09/19/18 07:06 Dose: 40 mg Quetiapine Fumarate (Seroquel) 50 mg PO BID [facility]; Protocol Stop: 11/17/18 08:59 Last Admin: 09/19/18 08:18 Dose: 50 mg General: Alert, Other (Confused) HEENT: Atraumatic Neck: Supple Cardiovascular: Regular rate Lungs: Clear to auscultation Abdomen: Bowel sounds, Soft Extremities: Other (No edema) Neurological: Other (Non ambulatory) Skin: Other (There is some redness of lower extremities) Psych/Mental Status: Other (Confused, not oriented) Assessment/Plan - Assessment Assessment: Patient is awake, confused, not oriented, she has a decubit ulcer in right calcaneal area. Dx: increased in agitation, Schizophrenia, Cellulites, Decubit ulcer stage I, General muscle weakness, non ambulatory. - Plan Plan: Patient is follow by Psychiatry, she is continue with SNF meds. Will continue to monitor. Nutritional Asmnt/Malnutr-PDOC - Dietary Evaluation Malnutrition Findings (Please click <Entered> for more info): Nutritional Asmnt/Malnutrition Start: 09/12/18 08: 57 Text: Status: Complete Freq: Protocol: Document 09/12/18 08:57 FABIANA (Rec: 09/12/18 09:01 [email or web address]) Nutritional Asmnt/Malnutrition Patient General Information Nutritional Screening High Risk Consult Diagnosis psychosis Pertinent Medical Hx/Surgical Hx schizo, bipolar Subjective Information Consult received for right media 1st metatarsal head pressure ulcer. Pt seen sleeping in bed at time of visit. Spoke with nurse Edna, stated pt eats well with assist. Per EMR, PO intake 50- 75% of meals, meeting 100% of nutritional needs. Pt is getting healthy shake on pureed diet. Current Diet Order/ Nutrition Support pureed Pertinent Medications theragran, protonix Pertinent Labs 09/09 K 3.4, Cl 110, Cr 0.5, glucose 95, Ca 8.4, Alb 2.8 Nutritional Hx/Data Height 1.68 m Height (Calculated Centimeters) 167.6 Current Weight (lbs) 52.163 kg Weight (Calculated Kilograms) 52.2 Weight (Calculated Grams) 85680.1 [place] Body Weight 130 Body Mass Index (BMI) 18.6 Weight Status Approriate GI Symptoms GI Symptoms None Last BM 09/11 Difficult in: None Skin Integrity/Comment: Right medial first metatarsal head Pressure ulcer Current %PO Fair (50-74%) Estimated Nutritional Goals BEE in Kcals: Using Current wt Calories/Kcals/Kg 27-32 Kcals Calculated 6597-5022 Protein: Using Current wt Protein g/k-1.2 Protein Calculated 52-62 Fluid: ml 1404-1664ml (1ml/kcal) Nutritional Problem 1. Problem Problem increased protein needs Etiology impared skin integrity Signs/Symptoms: Right medial first metatarsal head Pressure ulcer No current Nutrition Prob Problem N/A Malnutrition Alert Is there a minimum of two criteria No selected? Query Text:Check all the applicable criteria. A minimum of two criteria are recommended for diagnosis of either severe or non-severe malnutrition. Malnutrition Related to Morbid Obesity Malnutrition related to morbid obesity No Intervention/Recommendation Comments 1. Continue with pureed diet as ordered. Nurse to assist pt with all meals. Add Randy BID for wound healing. 2. Monitor PO intake, wt, labs and skin integrity 3. F/U as low risk in 7 days, 09/19, PO check 09/16 Expected Outcomes/Goals Expected Outcomes/Goals 1. PO intake to meet at least 75% of nutritional needs. 2. Wt stability, skin to remain intact, labs to approach WNL.
[2018-09-19] MEDS: Venelex 60gm Tube TP SCH (10:00)
[2018-09-19] MEDS ORDERED: Probiotic Screen MC PRN (13:15)
--- NOTE | 2018-09-19 19:37 | Progress Notes ---
DATE: 09/19/2018 SUBJECTIVE: Staff was spoken to. The patient is interviewed. Mood is noted to be irritable. Affect is constricted. The patient is screaming as the patient wants to know the time. The patient is getting more agitated towards the end of the day and the patient is able to tolerate the Zyprexa. No major behavioral problems are noted. Staff was spoken to and if there is a place available, possibly the patient is going to be discharged today. JOB# [id number]
[2018-09-20] MEDS: Pantoprazole 40 mg EC Tab PO SCH (06:48)
--- NOTE | 2018-09-20 08:37 | General Progress Note ---
Subjective - Review of Systems Service Date: 09/20/18 Subjective: Patient is confused and incoherent Objective - Results Result Diagrams: 09/09/18 20:57 09/09/18 20:57 Recent Labs: Laboratory Last Values WBC 7.3 Th/cmm (4.8-10.8) 09/09/18 20:57 RBC 4.34 Mil/cmm (3.80-5.20) 09/09/18 20:57 Hgb 13.4 gm/dL (12-16) 09/09/18 20:57 Hct 39.5 % (41.0-60) L 09/09/18 20:57 MCV 90.9 fl (81-100) 09/09/18 20:57 MCH 30.8 pg (27.0-31.0) 09/09/18 20:57 MCHC Differential 33.9 pg (28.0-36.0) 09/09/18 20:57 RDW 13.6 % (11.5-20.0) 09/09/18 20:57 Plt Count 311 Th/cmm (150-400) 09/09/18 20:57 MPV 6.8 fl 09/09/18 20:57 Neutrophils % 51.3 % (40.0-80.0) 09/09/18 20:57 Lymphocytes % 35.6 % (20.0-50.0) 09/09/18 20:57 Monocytes % 10.6 % (2.0-10.0) H 09/09/18 20:57 Eosinophils % 1.9 % (0.0-5.0) 09/09/18 20:57 Basophils % 0.6 % (0.0-2.0) 09/09/18 20:57 Sodium 140 mEq/L (136-145) 09/09/18 20:57 Potassium 3.4 mEq/L (3.5-5.1) L 09/09/18 20:57 Chloride 110 mEq/L (98-107) H 09/09/18 20:57 Carbon Dioxide 20.5 mEq/L (21.0-31.0) L 09/09/18 20:57 Anion Gap 12.9 (7.0-16.0) 09/09/18 20:57 BUN 15 mg/dL (7-25) 09/09/18 20:57 Creatinine 0.5 mg/dL (0.6-1.2) L 09/09/18 20:57 Est GFR ( Amer) > 60.0 ml/min (>90) 09/09/18 20:57 Est GFR (Non-Af Amer) > 60.0 ml/min 09/09/18 20:57 BUN/Creatinine Ratio 30.0 09/09/18 20:57 Glucose 95 mg/dL (70-105) 09/09/18 20:57 Calcium 8.4 mg/dL (8.6-10.3) L 09/09/18 20:57 Total Bilirubin 0.7 mg/dL (0.3-1.0) 09/09/18 20:57 AST 9 U/L (13-39) L 09/09/18 20:57 ALT 5 U/L (7-52) L 09/09/18 20:57 Alkaline Phosphatase 56 U/L (34-104) 09/09/18 20:57 Total Protein 5.3 gm/dL (6.0-8.3) L 09/09/18 20:57 Albumin 2.8 gm/dL (3.7-5.3) L 09/09/18 20:57 Globulin 2.5 gm/dL 09/09/18 20:57 Albumin/Globulin Ratio 1.1 (1.0-1.8) 09/09/18 20:57 Triglycerides 102 mg/dL (<150) 09/09/18 20:57 Cholesterol 137 mg/dL (<200) 09/09/18 20:57 LDL Cholesterol Direct 110 mg/dL (75-193) 09/09/18 20:57 HDL Cholesterol 29 mg/dL (23-92) 09/09/18 20:57 - Physical Exam Vitals and I&O: Vital Signs Temp 97.8 F 09/20/18 06:33 Pulse 70 09/20/18 06:33 Resp 20 09/20/18 06:33 BP 110/70 09/20/18 06:33 Pulse Ox 97 09/20/18 06:33 Intake & Output 09/19/18 09/20/18 09/20/18 18:59 06:59 18:59 Intake Total 960 120 Output Total 1 Balance 960 119 Intake: Oral 960 120 Output: Urine/Stool Mix 1 Other: # Voids 3 1 # Bowel Movements 1 Active Medications: Current Medications Acetaminophen (Tylenol) 650 mg PO Q4HR PRN PRN Reason: Mild Pain 1-3/ Temp above 100 Stop: 11/09/18 01:41 Last Admin: 09/15/18 12:01 Dose: 650 mg Al Hydrox/Mg Hydrox/Simethicone (Maalox) 30 ml PO Q4HR PRN PRN Reason: GI DISTRESS Stop: 11/09/18 00:15 Albuterol Sulfate (Albuterol 2.5mg/3ml Neb Ud) 2.5 mg HHN Q6H PRN PRN Reason: Shortness of Breath Stop: 11/09/18 20:04 [place] Oil/[place] Balsam/Trypsin (Venelex) 1 appl TP DAILY [facility] Stop: 11/10/18 14:14 Last Admin: 09/19/18 10:00 Dose: 1 appl Clindamycin HCl (Cleocin Hcl) 600 mg PO BID [facility] Stop: 11/16/18 16:59 Last Admin: 09/19/18 17:11 Dose: 600 mg Lactobacillus Rhamnosus (Culturelle 15b) 1 each PO DAILY [facility] Stop: 11/19/18 08:59 Lorazepam (Ativan) 0.5 mg PO Q4HR PRN; Protocol PRN Reason: Anxiety Stop: 10/10/18 00:15 Last Admin: 09/19/18 18:36 Dose: 0.5 mg Magnesium Hydroxide (Milk Of Magnesia) 30 ml PO HS PRN PRN Reason: Constipation Miscellaneous (Probiotic Screen) 1 ea MC PRN PRN PRN Reason: PROTOCOL Stop: 11/18/18 13:14 Multivitamins/Vitamin C (Theragran) 1 tab PO DAILY [facility] Stop: 11/09/18 08:59 Last Admin: 09/19/18 08:17 Dose: 1 tab Oxcarbazepine (Trileptal) 150 mg PO BID [facility]; Protocol Stop: 11/17/18 08:59 Last Admin: 09/19/18 17:12 Dose: 150 mg Pantoprazole Sodium (Protonix) 40 mg PO QDAC [facility] Stop: 11/09/18 07:29 Last Admin: 09/20/18 06:48 Dose: 40 mg Quetiapine Fumarate (Seroquel) 50 mg PO BID [facility]; Protocol Stop: 11/17/18 08:59 Last Admin: 09/19/18 17:11 Dose: 50 mg General: Alert, Other (Confused) HEENT: Atraumatic Neck: Supple Cardiovascular: Regular rate Lungs: Clear to auscultation Abdomen: Bowel sounds, Soft Extremities: Other (No edema) Neurological: Other (Non ambulatory) Skin: Other (There is some redness of lower extremities) Psych/Mental Status: Other (Confused, not oriented) Assessment/Plan - Assessment Assessment: Patient is awake, confused, not oriented, she has a decubit ulcer in right calcaneal area. Dx: increased in agitation, Schizophrenia, Cellulites, Decubit ulcer stage I, General muscle weakness, non ambulatory. - Plan Plan: Patient is follow by Psychiatry, she is continue with SNF meds. Will continue to monitor. Nutritional Asmnt/Malnutr-PDOC - Dietary Evaluation Malnutrition Findings (Please click <Entered> for more info): Nutritional Asmnt/Malnutrition Start: 09/12/18 08: 57 Text: Status: Complete Freq: Protocol: Document 09/12/18 08:57 [id number] (Rec: 09/12/18 09:01 [id number] [email or web address]) Nutritional Asmnt/Malnutrition Patient General Information Nutritional Screening High Risk Consult Diagnosis psychosis Pertinent Medical Hx/Surgical Hx schizo, bipolar Subjective Information Consult received for right media 1st metatarsal head pressure ulcer. Pt seen sleeping in bed at time of visit. Spoke with nurse Edna, stated pt eats well with assist. Per EMR, PO intake 50- 75% of meals, meeting 100% of nutritional needs. Pt is getting healthy shake on pureed diet. Current Diet Order/ Nutrition Support pureed Pertinent Medications theragran, protonix Pertinent Labs 09/09 K 3.4, Cl 110, Cr 0.5, glucose 95, Ca 8.4, Alb 2.8 Nutritional Hx/Data Height 1.68 m Height (Calculated Centimeters) 167.6 Current Weight (lbs) 52.163 kg Weight (Calculated Kilograms) 52.2 Weight (Calculated Grams) 89611.1 [place] Body Weight 130 Body Mass Index (BMI) 18.6 Weight Status Approriate GI Symptoms GI Symptoms None Last BM 09/11 Difficult in: None Skin Integrity/Comment: Right medial first metatarsal head Pressure ulcer Current %PO Fair (50-74%) Estimated Nutritional Goals BEE in Kcals: Using Current wt Calories/Kcals/Kg 27-32 Kcals Calculated 2606-4715 Protein: Using Current wt Protein g/k-1.2 Protein Calculated 52-62 Fluid: ml 1404-1664ml (1ml/kcal) Nutritional Problem 1. Problem Problem increased protein needs Etiology impared skin integrity Signs/Symptoms: Right medial first metatarsal head Pressure ulcer No current Nutrition Prob Problem N/A Malnutrition Alert Is there a minimum of two criteria No selected? Query Text:Check all the applicable criteria. A minimum of two criteria are recommended for diagnosis of either severe or non-severe malnutrition. Malnutrition Related to Morbid Obesity Malnutrition related to morbid obesity No Intervention/Recommendation Comments 1. Continue with pureed diet as ordered. Nurse to assist pt with all meals. Add Randy BID for wound healing. 2. Monitor PO intake, wt, labs and skin integrity 3. F/U as low risk in 7 days, 09/19, PO check 09/16 Expected Outcomes/Goals Expected Outcomes/Goals 1. PO intake to meet at least 75% of nutritional needs. 2. Wt stability, skin to remain intact, labs to approach WNL.
[2018-09-20] MEDS ORDERED: Lactobacillus Rhamnosus GG 15 Billion CFU CAP.SPRINK PO SCH (09:00)
[2018-09-20] MEDS: Venelex 60gm Tube TP SCH (09:56)
[2018-09-20] MEDS: Multivitamin Tab PO SCH (09:57)
--- NOTE | 2018-09-21 09:19 | Progress Notes ---
DATE: 09/20/2018 PSYCHIATRIC PROGRESS NOTE PROGRESS ON THE UNIT: Staff was spoken to. The patient is interviewed. Mood is noted to be irritable. Affect is constricted. Insight and judgment are noted to be improving. Impulse control seems to be fair. No side effects to medications are noted. The patient, however, has been having more of the sundowning syndrome symptoms and the patient has to be given a dose of Ativan to calm her down towards the end of the day. ASSESSMENT: The patient is stabilizing. PLAN: To discharge the patient when the placement is available. JOB# [id number]
== END 2018-09-20 19:15 | DRG 885 ==
LOC: ER 19:47 → GERO 21:52
PROVIDERS: ADMIT Psychiatry & Neurology Psychiatry; ATTEND Psychiatry & Neurology Psychiatry
DX: F31.64 Bipolar disorder, current episode mixed, severe, with psychotic features (principal); L03.116 Cellulitis of left lower limb; L03.115 Cellulitis of right lower limb; F41.9 Anxiety disorder, unspecified; Z88.0 Allergy status to penicillin; Z88.2 Allergy status to sulfonamides; I25.10 Atherosclerotic heart disease of native coronary artery without angina pectoris; F03.90 Unspecified dementia, unspecified severity, without behavioral disturbance, psychotic disturbance, mood disturbance, and anxiety; M62.81 Muscle weakness (generalized); L89.891 Pressure ulcer of other site, stage 1
CPT/HCPCS: 36415-UA; 71045-TC; 80053-TC; 80061-TC; 83036-90; 85025-TC; 93005; 94760; J1200; J1630; J2060; Z7610